=== PATIENT | female | born 1955 | race Caucasian/White ===

== ENCOUNTER → 2017-10-02 09:38 | Outpatient (CLI) | payer OTHER, SELFPAY ==
--- NOTE | 2017-10-02 | DI.MG.S_ITS ---
BILATERAL DIGITAL SCREENING MAMMOGRAM 3D/2D WITH CAD: 10/02/2017 CLINICAL: Routine screening. Family history of breast cancer. Comparison is made to exams dated: 09/12/2016 mammogram, 12/28/2015 mammogram, and 12/25/2014 mammogram - [facility]. There are scattered fibroglandular elements in both breasts. Current study was also evaluated with a Computer Aided Detection (CAD) system. No significant masses, calcifications, or other findings are seen in either breast. There has been no significant interval change. IMPRESSION: NEGATIVE There is no mammographic evidence of malignancy. A 1 year screening mammogram is recommended. This exam was interpreted at Station ID: [id number]. NOTE: For mammograms, a report in lay terms will be sent to the patient. Approximately 15% of breast malignancies will not be visualized mammographically. In the management of a palpable breast mass, a negative mammogram must not discourage biopsy of a clinically suspicious lesion. Electronically Signed By: Celine friedman/janet:10/02/2017 13:12:26 letter sent: Normal Exam ACR BI-RADS Category 1: Negative 3341F
== END ==
PROVIDERS: Family Provider Physician Assistant; PCP Physician Assistant; Visit Provider Physician Assistant
DX: Z12.31 Encounter for screening mammogram for malignant neoplasm of breast (principal); Z80.3 Family history of malignant neoplasm of breast
CPT/HCPCS: 77063; 77067

== ENCOUNTER 2017-12-20 11:12 | Day surgery (SDC) | payer OTHER, SELFPAY ==
--- NOTE | 2017-12-20 | PATH_ITS ---
[facility] Accession Number: [id number] . 01 Material submitted: . PART A: CECUM POLYP PART B: POLYP AT 30 . 02 Diagnosis: A. Biopsy, Cecum Polyp: Tubular adenoma involving single biopsy fragment. . B. Biopsy, Colon Polyp At 30 CM: Tubular adenoma involving single biopsy fragment. I/12/21/2017 . 02 Electronically signed: . Henry Barba MD, Pathologist NPI- [id number] . 01 Gross description: . Received two formalin-filled containers both labeled with the patient's name. . A. In a container labeled cecum polyp, the specimen consists of two 0.1 to 0.3 cm portions of tissue. Entirely submitted in cassette A. B. In a container labeled polyp at 30, the specimen consists of three 0.1 to 0.3 cm portions of tissue. Entirely submitted in cassette B. ([facility]:[id number]) /[facility] . 02 Pathologist provided ICD-10: D12.0 . 02 CPT . 662504, 876606 Performed at: 01 [facility] [address] [facility], [place], [place] [id number] MD Sanjay Sanders MD Phone: [phone] Performed at: 02 [facility] [address] [place], [place] [id number] MD Suleiman Brown MD Phone: [phone]
[2017-12-20 11:44] VITALS: BP 140/94; PULSE 81; RESP 16; TEMP 36.2; O2SAT 98; BMI 26.0
[2017-12-20] MEDS: SODIUM CHLORIDE 0.9% 1,000 ML 200 ML IV (11:45)
--- NOTE | 2017-12-20 12:59 | PM.PREOP ---
Pre-operative Note Interval Note Pre-op Check: Yes History & Physical Reviewed by Physician and Yes Exam Performed Changes: No H&P completed within 30 days and has changed as indicated here:: Risks and benefits discussed with her including bleeding perforation failure to find removal lesions in the potential tattoo
[2017-12-20 14:08] VITALS: BP 110/65; PULSE 75; RESP 18; TEMP 37.7
--- NOTE | 2017-12-20 14:08 | PM.OP.ENDO ---
Operative Date/Time/Diagnoses Date of procedure: 12/20/17 Time of procedure: 14:08 Pre-op diagnosis: Screening exam. Very anxious person who had great difficulty with her last colonoscopy. Request for anesthesiologist made. Post-op diagnosis: same (Two polyps removed 1 at the cecum and 1 at 30 cm from the anal verge. Scarring on old hemorrhoidal disease. No active ulcerations.) Procedure & Clinicians Study performed: Colonoscopy with cold biopsy Same procedure as scheduled: Yes Indications: Screening. Surgeon: Armando Bazan Procedure Notes SCOAP/Timeout: Performed Scope withdrawal time: Over 10 min Sedation minutes: 0 Findings: internal hemorrhoids and polyp (Cecum, a 30 cm from the anal verge. Each about 5-7 mm in size) Specimen(s): other (Polyps) Recommendations: Colonscopy in 5 years Follow up: as needed Disposition: PACU
[2017-12-20 14:15] VITALS: BP 111/76; PULSE 77; RESP 14
[2017-12-20 14:21] VITALS: BP 139/84; PULSE 74; RESP 16; TEMP 36.6
[2017-12-20 14:35] VITALS: BP 140/82; PULSE 72; RESP 16
== END 2017-12-20 14:46 | disposition home or self-care (01) ==
PROVIDERS: Family Provider Physician Assistant; PCP Physician Assistant; Visit Provider Specialist
PROC: 0DJD8ZZ Inspection of Lower Intestinal Tract, Via Natural or Artificial Opening Endoscopic (ICD-10-PCS; CPT 45378; principal; 2017-12-20 12:00)
DX: Z12.11 Encounter for screening for malignant neoplasm of colon (principal); K64.8 Other hemorrhoids; D12.0 Benign neoplasm of cecum
CPT/HCPCS: 45385; J1610; J2704; J3010

== ENCOUNTER → 2018-04-19 13:19 | Outpatient (CLI) | payer OTHER, SELFPAY ==
--- NOTE | 2018-04-19 | DI.RAD.S_ITS ---
PROCEDURE: XR SHOULDER LT MIN 2V INDICATIONS: SHOULDER PAIN TECHNIQUE: 3 views of the shoulder were acquired. COMPARISON: [facility], CR, XR SHOULDER RT MIN 2V, 04/19/2018, 13:27. FINDINGS: Bones: No fractures or dislocations. No suspicious bony lesions. Visualized ribs appear intact. Soft tissues: No suspicious soft tissue calcifications. IMPRESSION: No acute radiographic findings. If there is continued pain, followup exam or additional imaging such as MRI or CT could be performed for further assessment. Dictated by: Celine Morales M.D. on 04/19/2018 at 15:42 Approved by: Celine Morales M.D. on 04/19/2018 at 15:43
--- NOTE | 2018-04-19 | DI.RAD.S_ITS ---
PROCEDURE: XR SHOULDER RT MIN 2V INDICATIONS: SHOULDER PAIN TECHNIQUE: 3 views of the shoulder were acquired. COMPARISON: [facility], , SHOULDER MINIMUM 2VIEW RIGHT, 11/28/2012, 15:21. FINDINGS: Bones: No fractures or dislocations. No suspicious bony lesions. Visualized ribs appear intact. Soft tissues: No suspicious soft tissue calcifications. IMPRESSION: No acute radiographic findings. If there is continued pain, followup exam or additional imaging such as MRI or CT could be performed for further assessment. Dictated by: Celine Morales M.D. on 04/19/2018 at 15:43 Approved by: Celine Moarles M.D. on 04/19/2018 at 15:43
== END ==
PROVIDERS: Family Provider Physician Assistant; PCP Physician Assistant; Visit Provider Physician Assistant
DX: M25.511 Pain in right shoulder (principal); M25.512 Pain in left shoulder
CPT/HCPCS: 73030

== ENCOUNTER → 2018-10-15 12:29 | Outpatient (CLI) | payer OTHER, SELFPAY ==
--- NOTE | 2018-10-15 | DI.MG.S_ITS ---
BILATERAL DIGITAL SCREENING MAMMOGRAM 3D/2D WITH CAD: 10/15/2018 CLINICAL: Routine screening. Family history of breast cancer. Comparison is made to exams dated: 10/02/2017 mammogram, 09/12/2016 mammogram, 12/28/2015 mammogram, 12/25/2014 mammogram, and 12/17/2013 mammogram - [facility]. The tissue of both breasts is heterogeneously dense. This may lower the sensitivity of mammography. Current study was also evaluated with a Computer Aided Detection (CAD) system. No significant masses, calcifications, or other findings are seen in either breast. There has been no significant interval change. IMPRESSION: NEGATIVE There is no mammographic evidence of malignancy. A 1 year screening mammogram is recommended. This exam was interpreted at Station ID: [id number]. NOTE: For mammograms, a report in lay terms will be sent to the patient. Approximately 15% of breast malignancies will not be visualized mammographically. In the management of a palpable breast mass, a negative mammogram must not discourage biopsy of a clinically suspicious lesion. Electronically Signed By: Jostin wiggins/janet:10/15/2018 20:27:59 letter sent: Normal Exam ACR BI-RADS Category 1: Negative 3341F
== END ==
PROVIDERS: PCP Student in an Organized Health Care Education/Training Program; Visit Provider Student in an Organized Health Care Education/Training Program
DX: Z12.31 Encounter for screening mammogram for malignant neoplasm of breast (principal); Z80.3 Family history of malignant neoplasm of breast
CPT/HCPCS: 77063; 77067

== ENCOUNTER → 2018-11-09 11:36 | Outpatient (CLI) | payer OTHER, SELFPAY ==
[2018-11-09 13:10] LABS: Add Manual Diff / Slide Review NO; Basophils Absolute Auto 0 /uL (0-100); Basophils Percent Auto 0.3 % (0-2); Eosinophils Absolute Auto 0 /uL (0-450); Eosinophils Percent Auto 0.1 % (2-4); Hematocrit 42.8 % (36-46); Hemoglobin 14.4 g/dL (12.0-16.0); Lymphocytes Absolute Auto 1600 /uL (1100-4500); Lymphocytes Percent Auto 30.3 % (25-40); Mean Corpuscular HGB Conc 33.6 % (30-36); Mean Corpuscular Hemoglobin 29.6 PG (26-34); Monocytes Absolute Auto 300 /uL (0-900); Monocytes Percent Auto 5.6 % (3-14); Neutrophils Absolute Auto 3300 /uL (1500-7000); Neutrophils Percent Auto 63.7 % (50-75); Platelet Count 272 X10^3/uL (150-400); Red Blood Cell Count 4.87 X10^6/uL (4.0-5.2); White Blood Cell Count 5.1 X10^3/uL (4.5-11.0)
[2018-11-09 13:16] LABS: Alanine Aminotransferase 24 IU/L (9-52); Albumin 4.5 g/dL (3.5-5.0); Albumin Globulin Ratio 1.5 (1.0-2.8); Alkaline Phosphatase 92 U/L (38-126); Aspartate Aminotransferase 27 IU/L (14-36); BUN Creatinine Ratio 28.6 (6-22); Bilirubin Total 0.4 mg/dL (0.2-1.3); Blood Urea Nitrogen 20 mg/dL (7-17); Calcium 9.3 mg/dL (8.4-10.2); Carbon Dioxide 27 mmol/L (22-32); Chloride 104 mmol/L (98-107); Cholesterol 234 mg/dL (140-199); Estimated Glomerular Filt Rate > 60.0 mL/min (>60); Glucose 117 mg/dL (80-110); HDL Cholesterol 80 mg/dL (40-60); HEMOLYSIS < 15 (0-50); LDL Cholesterol Calculated 121 mg/dL (<100); Potassium 4.3 mmol/L (3.4-5.1); Sodium 140 mmol/L (137-145); Total Protein 7.5 g/dL (6.3-8.2); Triglycerides 164 mg/dL (35-150)
[2018-11-09 13:46] LABS: Thyroid Stimulating Hormone 1.25 uIU/mL (0.47-4.68)
== END ==
PROVIDERS: PCP Student in an Organized Health Care Education/Training Program; Visit Provider Student in an Organized Health Care Education/Training Program
DX: E03.9 Hypothyroidism, unspecified (principal); E78.2 Mixed hyperlipidemia
CPT/HCPCS: 36415; 80053; 80061; 84443; 85025

== ENCOUNTER → 2018-11-22 14:59 | Outpatient (CLI) | payer OTHER, SELFPAY | PROVIDERS: PCP Student in an Organized Health Care Education/Training Program; Visit Provider Student in an Organized Health Care Education/Training Program | DX: M85.851 Other specified disorders of bone density and structure, right thigh (principal) | CPT/HCPCS: 77080 ==

== ENCOUNTER → 2019-11-25 11:47 | Outpatient (CLI) | payer OTHER, SELFPAY ==
--- NOTE | 2019-11-25 | DI.MG.S_ITS ---
BILATERAL DIGITAL SCREENING MAMMOGRAM 3D/2D WITH CAD: 11/25/2019 CLINICAL: Routine screening. Family history of breast cancer. Comparison is made to exams dated: 10/15/2018 mammogram, 10/02/2017 mammogram, and 09/12/2016 mammogram - [facility]. The tissue of both breasts is heterogeneously dense. This may lower the sensitivity of mammography. Current study was also evaluated with a Computer Aided Detection (CAD) system. No significant masses, calcifications, or other findings are seen in either breast. There has been no significant interval change. IMPRESSION: NEGATIVE There is no mammographic evidence of malignancy. A 1 year screening mammogram is recommended. This exam was interpreted at Station ID: [id number]. NOTE: For mammograms, a report in lay terms will be sent to the patient. Approximately 15% of breast malignancies will not be visualized mammographically. In the management of a palpable breast mass, a negative mammogram must not discourage biopsy of a clinically suspicious lesion. Electronically Signed By: Tae mckee/janet:11/25/2019 16:42:48 letter sent: Normal Exam ACR BI-RADS Category 1: Negative 3341F
== END ==
PROVIDERS: PCP Student in an Organized Health Care Education/Training Program; Referring Provider Student in an Organized Health Care Education/Training Program; Visit Provider Student in an Organized Health Care Education/Training Program
DX: Z12.31 Encounter for screening mammogram for malignant neoplasm of breast (principal); Z80.3 Family history of malignant neoplasm of breast
CPT/HCPCS: 77063; 77067

== ENCOUNTER → 2020-03-02 17:34 | Outpatient (CLI) | payer OTHER, SELFPAY ==
[2020-03-02 18:56] LABS: Thyroid Stimulating Hormone 1.76 uIU/mL (0.47-4.68)
== END ==
PROVIDERS: PCP Student in an Organized Health Care Education/Training Program; Referring Provider Student in an Organized Health Care Education/Training Program; Visit Provider Student in an Organized Health Care Education/Training Program
DX: E03.9 Hypothyroidism, unspecified (principal)
CPT/HCPCS: 36415; 84443

== ENCOUNTER → 2020-05-31 19:42 | Outpatient (ROUT) | payer OTHER, SELFPAY ==
[2020-05-31 20:23] LABS: Blood Urea Nitrogen 12 mg/dL (7-17); Calcium 9.5 mg/dL (8.4-10.2); Carbon Dioxide 30 mmol/L (22-32); Chloride 100 mmol/L (98-107); Estimated Glomerular Filt Rate > 60.0 mL/min (>60); Glucose 170 mg/dL (80-110); HEMOLYSIS < 15 (0-50); Lipase 412 U/L (23-300); Potassium 3.9 mmol/L (3.4-5.1); Sodium 138 mmol/L (137-145)
== END ==
PROVIDERS: PCP Student in an Organized Health Care Education/Training Program; Visit Provider Student in an Organized Health Care Education/Training Program
DX: R19.7 Diarrhea, unspecified (principal)
CPT/HCPCS: 80048; 83690

== ENCOUNTER → 2020-06-16 13:17 | Outpatient (CLI) | payer OTHER, SELFPAY ==
--- NOTE | 2020-06-16 | DI.MRI.S_ITS ---
PROCEDURE: MR HEAD/BRAIN WO/W CON INDICATIONS: Headache, unspecified TECHNIQUE: Noncontrast axial T1 spin echo, axial T2 fast spin echo, sagittal and axial FLAIR, coronal T2 fast spin echo, axial gradient echo, axial diffusion and ADC through the brain. Thin-section precontrast T1 weighted images were obtained through the skull base. After the administration of contrast, axial and coronal T1 spin echo with fat saturation through the brain. Additional thin section coronal postcontrast T1 weighted fat saturated images were also acquired. COMPARISON: [facility], MR, BRAIN (PITUITARY) W&WO CONTRAS, 12/18/2012, 18:12. [facility], MR, BRAIN (PITUITARY) W&WO CONTRAS, 11/16/2010, 9:16. [facility], MR, BRAIN (PITUITARY) W&WO CONTRAS, 08/16/2015, 18:46. FINDINGS: Image quality: Excellent. CSF spaces: Basal cisterns are patent. No extra-axial fluid collections. Ventricles are normal in size and shape. Brain: No midline shift. No intracranial bleeds or masses. No abnormal intracranial enhancement. There is cerebral volume loss for age. There is periventricular white matter chronic small vessel ischemic change. The brainstem appears normal. Diffusion-weighted images demonstrate no acute ischemic insults. No chronic ischemic insults. Normal intravascular flow voids are present. A 9 mm hypoenhancing lesion is again seen involving the left pituitary, which is similar to the prior 2016 pituitary protocol MRI. Skull and face: Calvarial marrow is normal in signal. Orbits appear normal. Sinuses: Sinuses and mastoids appear clear. IMPRESSION: Unremarkable intracranial study, without an imaging explanation found for the patient's presenting history of headache. The known 9 mm left pituitary nodule is again seen. Dictated by: Cristóbal Multani M.D. on 06/16/2020 at 13:59 Approved by: Cristóbal Multani M.D. on 06/16/2020 at 14:04
== END ==
PROVIDERS: PCP Student in an Organized Health Care Education/Training Program; Referring Provider Student in an Organized Health Care Education/Training Program; Visit Provider Student in an Organized Health Care Education/Training Program
DX: R51.9 Headache, unspecified (principal); E23.7 Disorder of pituitary gland, unspecified
CPT/HCPCS: 70553; A9579

== ENCOUNTER → 2021-03-17 12:44 | Outpatient (CLI) | payer MEDICARE, SELFPAY | PROVIDERS: PCP Student in an Organized Health Care Education/Training Program; Referring Provider Student in an Organized Health Care Education/Training Program; Visit Provider Student in an Organized Health Care Education/Training Program | DX: M85.851 Other specified disorders of bone density and structure, right thigh (principal); Z78.0 Asymptomatic menopausal state | CPT/HCPCS: 77080 ==

== ENCOUNTER → 2021-03-29 07:46 | Outpatient (CLI) | payer MEDICARE, SELFPAY ==
--- NOTE | 2021-03-29 | DI.MG.S_ITS ---
BILATERAL DIGITAL SCREENING MAMMOGRAM 3D/2D WITH CAD: 03/29/2021 CLINICAL: Routine screening. Routine screening. Family history of breast cancer. Comparison is made to exams dated: 11/25/2019 mammogram, 10/15/2018 mammogram, and 10/02/2017 mammogram - [facility]. There are scattered fibroglandular elements in both breasts. Current study was also evaluated with a Computer Aided Detection (CAD) system. No significant masses, calcifications, or other findings are seen in either breast. There has been no significant interval change. IMPRESSION: NEGATIVE There is no mammographic evidence of malignancy. A 1 year screening mammogram is recommended. This exam was interpreted at Station ID: [id number]. NOTE: For mammograms, a report in lay terms will be sent to the patient. Approximately 15% of breast malignancies will not be visualized mammographically. In the management of a palpable breast mass, a negative mammogram must not discourage biopsy of a clinically suspicious lesion. Electronically Signed By: Tanisha valladares/janet:03/29/2021 11:19:07 letter sent: Normal Exam ACR BI-RADS Category 1: Negative 3341F
[2021-03-29 09:46] LABS: Cholesterol 233 mg/dL (140-199); HDL Cholesterol 67 mg/dL (40-60); LDL Cholesterol Calculated 129 mg/dL (<100); Triglycerides 185 mg/dL (35-150)
[2021-03-29 10:14] LABS: Thyroid Stimulating Hormone 3.43 uIU/mL (0.47-4.68)
[2021-03-30 19:06] LABS: HIV 1 & 2 Ab/Ag 4th Gen Combo NEGATIVE (NEGATIVE); Hep C Virus Ab w/Reflex Quant NEGATIVE s/c (NEGATIVE)
== END ==
PROVIDERS: PCP Student in an Organized Health Care Education/Training Program; Referring Provider Student in an Organized Health Care Education/Training Program; Visit Provider Student in an Organized Health Care Education/Training Program
DX: Z12.31 Encounter for screening mammogram for malignant neoplasm of breast (principal); Z80.3 Family history of malignant neoplasm of breast; Z13.220 Encounter for screening for lipoid disorders; E03.8 Other specified hypothyroidism; Z11.59 Encounter for screening for other viral diseases; Z11.4 Encounter for screening for human immunodeficiency virus [HIV]
CPT/HCPCS: 36415; 77063; 77067; 80061; 84443; 86803; 87389

== ENCOUNTER → 2022-02-13 09:00 | Outpatient (CLI) | payer MEDICARE, MEDICAID, SELFPAY ==
[2022-02-13 10:33] LABS: Add Manual Diff / Slide Review NO; Basophils Absolute Auto 0 /uL (0-100); Basophils Percent Auto 0.1 % (0-2); Eosinophils Absolute Auto 0 /uL (0-450); Eosinophils Percent Auto 0.1 % (2-4); Hematocrit 38.9 % (36-46); Hemoglobin 12.9 g/dL (12.0-16.0); Lymphocytes Absolute Auto 1400 /uL (1100-4500); Lymphocytes Percent Auto 31.7 % (25-40); Mean Corpuscular HGB Conc 33.2 % (30-36); Mean Corpuscular Hemoglobin 29.5 PG (26-34); Mean Corpuscular Volume 89.1 fL (80-100); Monocytes Absolute Auto 300 /uL (0-900); Monocytes Percent Auto 6.5 % (3-14); Neutrophils Absolute Auto 2800 /uL (1500-7000); Neutrophils Percent Auto 61.6 % (50-75); Platelet Count 198 X10^3/uL (150-400); Red Blood Cell Count 4.37 X10^6/uL (4.0-5.2); Red Cell Distribution Width 13.1 % (11.6-14.8); White Blood Cell Count 4.5 X10^3/uL (4.5-11.0)
[2022-02-13 11:00] LABS: Alanine Aminotransferase 33 IU/L (<35); Albumin 4.4 g/dL (3.5-5.0); Albumin Globulin Ratio 1.4 (1.0-2.8); Alkaline Phosphatase 91 U/L (38-126); Aspartate Aminotransferase 31 IU/L (14-36); BUN Creatinine Ratio 21.4 (6-22); Bilirubin Total 0.4 mg/dL (0.2-1.3); Blood Urea Nitrogen 21 mg/dL (7-17); Calcium 9.3 mg/dL (8.4-10.2); Carbon Dioxide 26 mmol/L (22-32); Chloride 106 mmol/L (98-107); Cholesterol 235 mg/dL (140-199); Estimated Glomerular Filt Rate > 60 mL/min (>60); Globulin 3.1 g/dL (1.7-4.1); Glucose 110 mg/dL (80-110); HDL Cholesterol 66 mg/dL (40-60); HEMOLYSIS < 15 (0-50); LDL Cholesterol Calculated 130 mg/dL (<100); Potassium 4.5 mmol/L (3.4-5.1); Sodium 140 mmol/L (137-145); Total Protein 7.5 g/dL (6.3-8.2); Triglycerides 197 mg/dL (35-150)
[2022-02-13 11:08] LABS: Rheumatoid Factor < 8.6 IU/mL (<12.0)
[2022-02-16 13:57] LABS: ANA Screen, IFA Negative (.)
[2022-02-17 07:59] LABS: Dil Russell Viper Venom Conf 2.5 ratio (0.8-1.2); Dilute Russell Viper Venom 109.2 sec (0.0-47.0); Dilute Russell Viper Venom Mix 85.5 sec (0.0-40.4); Hexagonal Phase Phospholipid 27 sec (0-11); Lupus Reflex Interpretation Comment: (.); PTT- LA Mix 61.5 sec (0.0-48.9); PTT-LA 66.2 sec (0.0-51.9)
[2022-03-01 12:11] LABS: Cardiolipin IgA Negative (.)
[2022-03-01 12:36] LABS: Recommendations Comment: (.)
== END ==
PROVIDERS: PCP Student in an Organized Health Care Education/Training Program; Referring Provider Internal Medicine; Visit Provider Internal Medicine
DX: R23.1 Pallor (principal)
CPT/HCPCS: 36415; 80053; 80061; 82595; 83520; 85025; 85598; 85613; 86038; 86147; 86148; 86430

== ENCOUNTER → 2022-03-29 15:50 | Outpatient (CLI) | payer MEDICARE, SELFPAY ==
--- NOTE | 2022-03-29 15:52 | DI.ECHO.S_ITS ---
[facility] +---------+ : : [address] : : : : [id number] : : : : Phone: [phone]+ Echocardiogram Report + + :Name: UNRULY CHAMBERS Study Date: 03/29/2022 Height: 63 in : :[facility] ReadingLocation: Weight: 174 lb : : Gender: Female BSA: 1.8 m2 : :: 1955 Age: 67 yrs BP: 106/75 mmHg: :Reason For Study: HYPERTENSION : :Ordering Physician: HODA, : :PRAVEEN Performed By: Amy Choi : :Referring: PRAVEEN DRUMMOND : + + Interpretation Summary The ejection fraction is estimated to be 65-70%. Grade I diastolic dysfunction. The right ventricle is normal in size and function. The IVC is of normal diameter and collapses greater than 50% with a sniff. This suggests a low right atrial pressure of 3 mm Hg. No significant valvular disease. Procedure: A two-dimensional transthoracic echocardiogram with color flow and Doppler was performed. The study quality was technically adequate. Comparison is made with the echocardiogram of 12/14/2016. The patient was in sinus rhythm with heart rates between 74-86 bpm during the exam. Left Ventricle: The left ventricular cavity is small. There is normal left ventricular wall thickness. Concentric remodeling. The ejection fraction is estimated to be 65-70%. There are no obvious focal wall motion abnormalities noted but poor endocardial definition reduces the sensitivity for the detection of such. Grade I diastolic dysfunction. Right Ventricle: The right ventricle is normal in size and function. Atria: The left atrial size is normal. Right atrial size is normal. There is no Doppler evidence for an interatrial shunt. Mitral Valve: The mitral valve is normal in structure and function. There is trace mitral regurgitation. Aortic Valve: The aortic valve is trileaflet. The aortic valve opens well. There is no aortic valve stenosis. No aortic regurgitation is present. Tricuspid Valve: The tricuspid valve is normal in structure and function. There is trace tricuspid regurgitation. Pulmonic Valve: The pulmonic valve leaflets are thin and pliable; valve motion is normal. There is trace pulmonic regurgitation. Great Vessels: The aortic root is normal size. The dimensions of the ascending aorta are normal. The IVC is of normal diameter and collapses greater than 50% with a sniff. This suggests a low right atrial pressure of 3 mm Hg. Pericardium/ Pleura There is no pericardial effusion. There is no pleural effusion. MMode/2D Measurements & Calculations LVIDd: 3.9 cm LVOT diam: 2.0 cm IVSd: 0.95 cm Ao root diam: 3.1 cm LVPWd: 0.92 cm asc Aorta Diam: 3.4 cm LV hines. diameter/BSA (cm/m^2): 2.1 Ao Arch Diam (Prox Trans): 2.6 cm LA A2 area: 17.5 cm2 RA long axis: 4.0 cm LA A4 area: 9.9 cm2 RA area: 11.1 cm2 LA length (vol): 4.2 cm RA vol: 26.4 ml LA vol: 35.2 ml RA : 14.5 ml/m2 LA vol index: 19.3 ml/m2 IVC diam: 0.86 cm RVD1 (basal): 3.2 cm RVD2 (mid): 2.7 cm TAPSE: 1.8 cm Doppler Measurements & Calculations Ao V2 max: 134.1 cm/sec LVOT Max Edenilson: 121.5 cm/sec Ao V2 mean: 97.8 cm/sec LV V1 max P.9 mmHg Ao max P.2 mmHg LV V1 VTI: 22.0 cm Ao mean P.1 mmHg TIGRE(I,D): 2.8 cm2 Ao V2 VTI: 24.6 cm TIGRE(V,D): 2.8 cm2 sev ratio: 0.90 TIGRE indexed to BSA (cm^2/m^2): 1.5 MV E max edenilson: 92.5 cm/sec PA V2 max: 111.6 cm/sec MV A max edenilson: 91.6 cm/sec PA V2 mean: 74.5 cm/sec MV E/A: 1.0 PA mean P.6 mmHg Med Peak E' Edenilson: 5.5 cm/sec PA pr(Accel): 53.3 mmHg E/E' med: 16.7 Lat Peak E' Edenilson: 7.7 cm/sec E/E' lat: 12.0 E/e' average: 14.3 MV dec time: 0.23 sec [facility]): 68.0 ml Reading Physician:ТАТЬЯНА
== END ==
PROVIDERS: PCP Nurse Practitioner; Referring Provider Nurse Practitioner; Visit Provider Nurse Practitioner
DX: I10 Essential (primary) hypertension (principal)
CPT/HCPCS: 93005; 93306

== ENCOUNTER → 2022-04-18 15:11 | Outpatient (CLI) | payer MEDICARE, SELFPAY ==
--- NOTE | 2022-04-18 15:12 | DI.MG.S_ITS ---
BILATERAL DIGITAL SCREENING MAMMOGRAM 3D/2D WITH CAD: 04/18/2022 CLINICAL: Routine screening. Family history of breast cancer. Comparison is made to exams dated: 03/29/2021 mammogram, 11/25/2019 mammogram, and 10/15/2018 mammogram - [facility]. There are scattered areas of fibroglandular density in both breasts (category b / 25%-50% glandular tissue). Current study was also evaluated with a Computer Aided Detection (CAD) system. There are benign calcifications in both breasts. No significant masses, calcifications, or other findings are seen in either breast. There has been no significant interval change. IMPRESSION: BENIGN There is no mammographic evidence of malignancy. A 1 year screening mammogram is recommended. Based on the Tyrer Cuzick model (a risk assessment model) the patient's lifetime risk is 7.0% and her 10 year risk is 3.5%. According to the ACR, ACS, and NCCN guidelines, an annual breast MRI exam along with mammogram is recommended if the patient's lifetime risk is 20% or greater. This exam was interpreted at Station ID: [id number]. NOTE: For mammograms, a report in lay terms will be sent to the patient. Approximately 15% of breast malignancies will not be visualized mammographically. In the management of a palpable breast mass, a negative mammogram must not discourage biopsy of a clinically suspicious lesion. Electronically Signed By: Josias mcduffie/janet:04/19/2022 12:55:28 letter sent: Normal Exam ACR BI-RADS Category 2: Benign Finding(s) 3342F
[2022-04-25 17:11] LABS: Fecal Immunochemical Test Negative (Negative)
== END ==
PROVIDERS: PCP Nurse Practitioner; Referring Provider Nurse Practitioner; Visit Provider Nurse Practitioner
DX: Z12.31 Encounter for screening mammogram for malignant neoplasm of breast (principal); Z80.3 Family history of malignant neoplasm of breast; Z12.11 Encounter for screening for malignant neoplasm of colon
CPT/HCPCS: 77063; 77067; 82274

== ENCOUNTER → 2022-08-18 09:55 | Outpatient (CLI) | payer MEDICARE, MEDICAID, SELFPAY ==
[2022-08-18 10:40] LABS: Add Manual Diff / Slide Review NO; Basophils Absolute Auto 0 /uL (0-100); Basophils Percent Auto 0.1 % (0-2); Eosinophils Absolute Auto 0 /uL (0-450); Eosinophils Percent Auto 0.1 % (2-4); Hematocrit 38.5 % (36-46); Lymphocytes Absolute Auto 1400 /uL (1100-4500); Lymphocytes Percent Auto 27.4 % (25-40); Mean Corpuscular HGB Conc 33.7 % (30-36); Mean Corpuscular Volume 89.1 fL (80-100); Monocytes Absolute Auto 300 /uL (0-900); Monocytes Percent Auto 5.4 % (3-14); Neutrophils Absolute Auto 3300 /uL (1500-7000); Platelet Count 223 X10^3/uL (150-400); Red Blood Cell Count 4.32 X10^6/uL (4.0-5.2); Red Cell Distribution Width 13.4 % (11.6-14.8)
[2022-08-18 11:07] LABS: Alanine Aminotransferase 36 IU/L (<35); Albumin 4.1 g/dL (3.5-5.0); Albumin Globulin Ratio 1.5 (1.0-2.8); Alkaline Phosphatase 95 U/L (38-126); Aspartate Aminotransferase 28 IU/L (14-36); Bilirubin Total 0.3 mg/dL (0.2-1.3); Blood Urea Nitrogen 24 mg/dL (7-17); Calcium 9.3 mg/dL (8.4-10.2); Carbon Dioxide 27 mmol/L (22-32); Chloride 107 mmol/L (98-107); Estimated Glomerular Filt Rate > 60 mL/min (>60); Globulin 2.8 g/dL (1.7-4.1); Glucose 103 mg/dL (80-110); HEMOLYSIS < 15 (0-50); Potassium 4.4 mmol/L (3.4-5.1); Sodium 140 mmol/L (137-145); Total Protein 6.9 g/dL (6.3-8.2)
[2022-08-18 11:09] LABS: Cholesterol 217 mg/dL (140-199); HDL Cholesterol 71 mg/dL (40-60); LDL Cholesterol Calculated 114 mg/dL (<100); Triglycerides 158 mg/dL (35-150)
[2022-08-19 06:08] LABS: Labcorp Hemoglobin (Hb) A1c 5.6 % (4.8-5.6)
== END ==
PROVIDERS: Internal Medicine Hematology & Oncology; PCP Nurse Practitioner; Referring Provider Nurse Practitioner; Visit Provider Nurse Practitioner
DX: E78.2 Mixed hyperlipidemia; Z87.898 Personal history of other specified conditions; D68.61 Antiphospholipid syndrome; R73.01 Impaired fasting glucose
CPT/HCPCS: 36415; 80053; 80061; 83036; 85025

== ENCOUNTER → 2022-10-10 17:09 | Outpatient (CLI) | payer MEDICARE, MEDICAID, SELFPAY | PROVIDERS: PCP Nurse Practitioner; Visit Provider Nurse Practitioner | DX: N89.8 Other specified noninflammatory disorders of vagina (principal) | CPT/HCPCS: 87070; 87205 ==

== ENCOUNTER 2022-11-28 12:29 | Day surgery (SDC) | payer MEDICARE, MEDICAID, SELFPAY ==
--- NOTE | 2022-11-28 | PATH_ITS ---
[facility] Accession Number: [id number] No. of containers..03 Tissue . 01 Material submitted: . PART A: colon - TRANSVERSE POLYP PART B: rectum - RECTAL BIOPSY PART C: rectum - RECTAL POLYP . 01 Diagnosis: A. Transverse Colon Polyp, Biopsy: Tubular adenoma. . B. Rectum, Biopsy: Colonic mucosa with no diagnostic abnormality. Negative for active, chronic, and microscopic colitis. Negative for dysplasia and malignancy. . C. Rectal Polyp, Biopsy: Hyperplastic polyp. [facility] 12/05/2022 1100 Local . 01 Electronically signed: . Eryn Pratt MD, Pathologist NPI- [id number] . 01 Gross description: . A. Received in formalin, labeled with the patient's name and transverse polyp, are two 0.3 cm biopsies, submitted entirely in cassette A1. B. Received in formalin, labeled with the patient's name and rectal biopsy, are two 0.2-0.3 cm biopsies, submitted entirely in cassette B1. C. Received in formalin, labeled with the patient's name and rectal polyp, is a 0.4 cm biopsy, submitted entirely in cassette C1. (SF:[id number]) /[facility] 12/02/2022 1602 Local . 01 Pathologist provided ICD-10: D12.3, D12.8 . 01 CPT . 498956, 996022, 126504 Specimen Comment: A courtesy copy of this report has been sent to [phone] Performed at: 01 [facility] [address] [place] [address], [place], [place] [id number] MD Sanjay Sanders MD Phone: [phone]
[2022-11-28] MEDS: FLEETS ENEMA 1 EACH PR (12:54)
[2022-11-28 13:13] VITALS: BMI 65.6
[2022-11-28 13:20] VITALS: BP 137/84; PULSE 92; RESP 17; TEMP 36.8; O2SAT 100
[2022-11-28] MEDS: LACTATED RINGERS 1,000 ML 42 ML IV (13:25)
--- NOTE | 2022-11-28 14:37 | P.HP_ITS ---
History of Present Illness History of Present Illness Date Patient Seen: 11/28/22 Chief complaint: Colonoscopy Narrative: 67-year-old woman here for diagnostic colonoscopy for altered bowel function. Please refer to the H and P from October for further detail. No interval change in health [facility] Medical History Acne Anemia Antiphospholipid antibody syndrome Anxiety Chicken pox Colon polyps Depression Diverticular disease Eczema Gastric ulcer GERD (gastroesophageal reflux disease) H/O: depression Hearing loss Hearing Loss History of recurrent ear infection History of urinary incontinence Human papilloma virus Hyperlipidemia Hypertension Hypothyroidism Irregular menstrual cycle Irritable bowel syndrome Lupus Measles Mixed hyperlipidemia Mumps Painful menstrual periods Pituitary adenoma Plantar warts Post menopausal problems Psoriasis Scar of middle ear Sebaceous cyst Seizures Temporal lobe epilepsy Uses hearing aid Surgical History Anesthesia History of tonsillectomy and adenoidectomy Plantar warts Venus teeth removed Family History Father Hypertension Stroke Cancer Brother Hypertension Stroke Diabetes mellitus Cancer History of heart disease Mental health problem Mother Dementia Grandfather Cancer Grandmother Cancer Grandfather Cancer Social History (Updated 10/19/22 @ 11:00 by Lena Romero MA) marital status: household members: spouse lives independently: Yes occupational status: previously employed Smoking Status: Never smoker alcohol intake: current substance use type: does not use Meds Home Medications and Allergies Home Medications Medication Instructions Recorded Confirmed Type levothyroxine 112 mcg capsule 112 mcg PO DAILY 12/20/17 11/28/22 History ascorbic acid (vitamin C) 500 mg 500 mg PO .QD 03/13/22 11/28/22 History capsule cholecalciferol (vitamin D3) 50 50 mcg PO DAILY 03/13/22 11/28/22 History mcg (2,000 unit) capsule famotidine 20 mg tablet See Rx Instructions PO .COMPLEX 03/13/22 11/28/22 History levetiracetam 250 mg tablet 250 mg PO BID 03/13/22 11/28/22 History lisinopril 10 mg tablet 10 mg PO DAILY 03/13/22 11/28/22 History olanzapine 5 mg tablet 2.5 mg PO BEDTIME #45 tabs 03/13/22 11/28/22 Rx topiramate 100 mg tablet See Rx Instructions PO .COMPLEX 03/13/22 11/28/22 History atorvastatin 40 mg tablet 40 mg PO BEDTIME #90 tabs 04/03/22 11/28/22 Rx ezetimibe 10 mg tablet 10 mg PO .HS #90 tabs 04/03/22 11/28/22 Rx aspirin 81 mg tablet,delayed 81 mg PO DAILY aps #90 tabs 05/25/22 11/28/22 Rx release venlafaxine 150 mg 150 mg PO BEDTIME #90 caps 06/12/22 11/28/22 Rx capsule,extended release 24 hr sodium,potassium,mag sulfates 17.5 See Rx Instructions PO .COMPLEX 11/10/22 Rx gram-3.13 gram-1.6 gram oral soln #354 mL (Suprep Bowel Prep Kit) Allergies Allergy/AdvReac Type Severity Reaction Status Date / Time amoxicillin [AMOXICILLIN] Allergy Unknown Rash Verified 10/19/22 10:58 Penicillins Allergy Rash Verified 10/19/22 10:58 Sulfa (Sulfonamide Allergy Rash Verified 11/28/22 13:11 Antibiotics) adhesive tape AdvReac Unknown Redness of Verified 11/28/22 13:11 Skin Exam Vital Signs (past 8 hours): - 11/28/22 13:20 Temperature 98.2 F Pulse Rate 92 H Respiratory Rate 17 Blood Pressure 137/84 Pulse Oximetry 100 Oxygen Delivery Method Room Air Oxygen Delivery Method Room Air Narrative Exam Narrative: General adult woman alert oriented no acute distress Abdomen soft nontender nondistended Assessment & Plan Assessment and plan (1) Altered bowel function: Status: Acute Assessment & Plan narrative: 67year old woman with altered bowel function here for diagnostic colonoscopy Technical details were discussed. Risks, benefits, alternatives explained. Risks including but not limited to myocardial infarction, aspiration, bleeding, pain, missed lesion, incomplete examination, need for further radiographic studies, colonic perforation, and need for major abdominal surgery were discussed. All questions were answered to their satisfaction, and they are in agreement with this plan.
--- NOTE | 2022-11-28 14:38 | PM.OP.COLON ---
Operative Date/Time/Diagnoses Date of procedure: 11/28/22 Time of procedure: 14:39 Pre-op diagnosis: Altered bowel function Post-op diagnosis: other (Colonic polyps x2) Procedure & Clinicians Study performed: Diagnostic colonoscopy Same procedure as scheduled: Yes Indications: Altered bowel function Surgeon: Jefferson Kirk Procedure Notes Procedure in detail: The history and physical was performed/updated and the patient is ASA class is 2. The procedure was discussed in detail with the patient. Potential risks complications including infection, bleeding, missed diagnosis, perforation, need for surgery, and were explained. Their questions were answered and informed consent was obtained. Patient was brought to the procedure room and placed standard monitoring equipment. The patient's vital signs were monitored continuously throughout the entire procedure. Prior to starting time-out was performed. The patient was placed in the left lateral recumbent position. Procedural sedation was administered by anesthesia. Examination began with a thorough inspection of the perianal area there was no evidence of fissures, fistulae, external hemorrhoids or cutaneous malignancy. The colonoscopy scope was then placed into the anal canal and was advanced to the cecum, which was identified by the ileocecal valve, the appendiceal orifice and the confluence of the taenia. The scope was then slowly withdrawn examining colon thoroughly in all directions, irrigating it of any residual stool. -transverse colon 5 mm polyp removed with biopsy forceps -rectum 3 mm polyp removed with biopsy forceps. A random colonic biopsy was performed to The patient tolerated the procedure well. They will be discharged once criteria are met. The prep was of good/excellent quality. The withdrawl time was 8 minutes. Specimen(s): other (Transverse and rectal polyps. Colonic biopsy) Impression: Colonic polyps x2 Post-procedure Plan for aftercare: Follow-up dependent on pathology findings. Likely 5 years. Disposition: same day surgery
[2022-11-28 15:27] VITALS: BP 95/64; PULSE 74; RESP 14; TEMP 36.4; O2SAT 95
[2022-11-28 15:32] VITALS: BP 94/62; PULSE 82; RESP 16; O2SAT 98
[2022-11-28 15:37] VITALS: BP 121/74; PULSE 77; RESP 16; TEMP 36.3; O2SAT 99
[2022-11-28 15:41] VITALS: BP 134/76; PULSE 69; RESP 16; O2SAT 99
== END 2022-11-28 16:04 | disposition home or self-care (01) ==
PROVIDERS: PCP Nurse Practitioner; Referring Provider Surgery; Visit Provider Surgery
PROC: 0DJD8ZZ Inspection of Lower Intestinal Tract, Via Natural or Artificial Opening Endoscopic (ICD-10-PCS; CPT 45378; principal; 2022-11-28 13:30)
DX: R19.8 Other specified symptoms and signs involving the digestive system and abdomen (principal); D12.3 Benign neoplasm of transverse colon; K62.1 Rectal polyp
CPT/HCPCS: 45380; J2704

== ENCOUNTER → 2023-04-19 | Outpatient (CLI) | payer MEDICARE, MEDICAID, SELFPAY ==
--- NOTE | 2023-04-19 12:37 | DI.RAD.S_ITS ---
Bone Density Report Name: UNRULY CHAMBERS Age: 68 Sex: Female Ethnicity: White Date of : 1955 Indication: osteopenia; Referring Provider: PRAVEEN DRUMMOND Study: Bone densitometry was performed. Exam Date: April 19, 2023 Accession number: [id number] Bone Density: Region BMD T-score Z-score Classification AP Spine(L1, L4) 0.981 -0.5 1.4 Normal Femoral Neck (Left) 0.631 -2.0 -0.3 Osteopenia Total Hip (Left) 0.818 -1.0 0.3 Normal Femoral Neck (Right) 0.576 -2.5 -0.8 Osteoporosis Total Hip (Right) 0.772 -1.4 0.0 Osteopenia Total Hip Mean 0.795 -1.2 0.2 Osteopenia World Health Organization criteria for BMD impression classify patients as: Normal (T-score at or above -1.0), Osteopenia (T-score between -1.0 and -2.5), or Osteoporosis (T-score at or below -2.5). 10-year Fracture Risk: FRAX not reported because: Some T-score for Spine Total or Hip Total or Femoral Neck at or below -2.5 Previous Exams: -- Region Exam Age BMD T-score BMD Change BMD Change Date g/cm2 vs Baseline vs Previous -- AP Spine (L1,L4) 04/19/2023 68 0.981 -0.5 -0.079 (-7.5%)# -0.085 (-8.0%)# 03/17/2021 66 1.065 0.3 0.006 (0.5%) 0.006 (0.5%) 11/22/2018 63 1.060 0.2 Total Hip(Left) 04/19/2023 68 0.818 -1.0 -0.012 (-1.4%)# -0.002 (-0.3%)# 03/17/2021 66 0.820 -1.0 -0.010 (-1.2%) -0.010 (-1.2%) 11/22/2018 63 0.829 -0.9 Total Hip(Right) 04/19/2023 68 0.772 -1.4 -0.049 (-6.0%)# -0.030 (-3.8%)# 03/17/2021 66 0.803 -1.1 -0.019 (-2.3%) -0.019 (-2.3%) 11/22/2018 63 0.821 -1.0 -- *Denotes significance at 95% confidence level, LSC for AP Spine = 0.022 g/cm2, LSC for Total Hip = 0.027 g/cm2 Rate of change results reflect vertebral levels common to all scans # Denotes dissimilar scan types or analysis methods Impression: The patient has osteoporosis, based on the Right Femoral Neck T-score. No significant bone loss was observed. Discussion: INCREASED RISK OF FRACTURE. BONE DENSITY IS UNDESIRABLY LOW AT ONE OR MORE SKELETAL SITES, CONSISTENT WITH POSTMENOPAUSAL OSTEOPOROSIS. This patient's lowest T-score meets the World Health Organization's (WHO) criteria for osteoporosis at one or more sites (T-score -2.5 or below). In untreated patients, the risk of osteoporotic fracture increases approximately two-fold for each 1.0 SD decrease in T-score. Low bone density is not the only risk factor for fracture; also consider factors such as patient's age, frailty or poor health, risk of falling, risk of injury, previous osteoporotic fracture, family history of osteoporosis, cigarette smoking, low body weight, etc. Not everyone with low bone mineral density has osteoporosis; osteomalacia and other metabolic bone disorders should also be considered. Patients who have osteoporosis should be evaluated for specific diseases and conditions (secondary causes) that may cause or contribute to bone loss. The [place] [employer] Endocrinologists (AACE) and National Osteoporosis Foundation (NOF) recommend pharmacologic intervention for all postmenopausal women whose T-score is in this range. The patient should follow a healthful lifestyle (good nutrition with adequate calcium and vitamin D, and appropriate weight-bearing exercise). Follow-Up: Consider a repeat BMD and Vertebral Fracture Assessment (VFA) exam in 2 years or sooner if medically necessary, to reassess this patient's status. Reported by: MITRA BURRIS M.D. on 04/19/2023 10:43:00 AM.
--- NOTE | 2023-04-19 12:37 | DI.MG.S_ITS ---
BILATERAL DIGITAL SCREENING MAMMOGRAM 3D/2D WITH CAD: 04/19/2023 CLINICAL: Routine screening. Family history of breast cancer. Comparison is made to exams dated: 04/18/2022 mammogram, 03/29/2021 mammogram, and 11/25/2019 mammogram - [facility]. There are scattered areas of fibroglandular density in both breasts (category b / 25%-50% glandular tissue). Current study was also evaluated with a Computer Aided Detection (CAD) system. There are benign calcifications in both breasts. No significant masses, calcifications, or other findings are seen in either breast. There has been no significant interval change. IMPRESSION: BENIGN There is no mammographic evidence of malignancy. A 1 year screening mammogram is recommended. Based on the Tyrer Cuzick model (a risk assessment model) the patient's lifetime risk is 6.7% and her 10 year risk is 3.5%. According to the ACR, ACS, and NCCN guidelines, an annual breast MRI exam along with mammogram is recommended if the patient's lifetime risk is 20% or greater. This exam was interpreted at Station ID: [id number]. NOTE: For mammograms, a report in lay terms will be sent to the patient. Approximately 15% of breast malignancies will not be visualized mammographically. In the management of a palpable breast mass, a negative mammogram must not discourage biopsy of a clinically suspicious lesion. Electronically Signed By: Jay [email or web address]:04/19/2023 13:48:10 letter sent: Normal Exam ACR BI-RADS Category 2: Benign Finding(s) 3342F
== END ==
PROVIDERS: PCP Nurse Practitioner; Referring Provider Nurse Practitioner; Visit Provider Nurse Practitioner
DX: Z12.31 Encounter for screening mammogram for malignant neoplasm of breast (principal); M81.0 Age-related osteoporosis without current pathological fracture; Z80.3 Family history of malignant neoplasm of breast
CPT/HCPCS: 77063; 77067; 77080

== ENCOUNTER → 2023-06-06 12:36 | Outpatient (CLI) | payer MEDICARE, MEDICAID, SELFPAY ==
[2023-06-06 13:00] LABS: Appearance Urine UA CLEAR; Bilirubin Urine UA NEGATIVE (NEGATIVE); Color Urine UA YELLOW; Glucose Urine UA NEGATIVE (Negative); Ketones Urine UA NEGATIVE (NEGATIVE); Leukocyte Esterase Urine UA TRACE (NEGATIVE); Nitrite Urine UA NEGATIVE (Negative); Occult Blood Urine UA NEGATIVE (Negative); Protein Urine UA NEGATIVE (Negative); Urobilinogen Urine UA 0.2 E.U./dL (0.2)
[2023-06-06 13:07] LABS: Bacteria Urine Occasional (0-1); Culture Indicated Urine Specimen Cultured; RBC Urine None Seen (0-5/HPF); Squamous Epithelial Cell Urine 0-1 /HPF (0-5/HPF); Urine Volume 10mL (spun); WBC Urine 0-1/HPF (0-5/HPF)
== END ==
LOC: LAB 12:37
PROVIDERS: PCP Nurse Practitioner; Referring Provider Nurse Practitioner; Visit Provider Nurse Practitioner
DX: R32 Unspecified urinary incontinence (principal)
CPT/HCPCS: 81001; 87086

== ENCOUNTER → 2023-07-03 12:22 | Outpatient (CLI) | payer MEDICARE, MEDICAID, SELFPAY ==
[2023-07-03 14:25] LABS: Thyroid Stimulating Hormone 1.32 uIU/mL (0.47-4.68)
== END ==
PROVIDERS: PCP Nurse Practitioner; Referring Provider Nurse Practitioner; Visit Provider Nurse Practitioner
DX: E03.9 Hypothyroidism, unspecified (principal)
CPT/HCPCS: 36415; 84443

== ENCOUNTER → 2023-07-19 15:19 | Outpatient (CLI) | payer MEDICARE, MEDICAID, SELFPAY | PROVIDERS: PCP Family Medicine; Visit Provider Family Medicine | DX: N39.0 Urinary tract infection, site not specified (principal); N89.8 Other specified noninflammatory disorders of vagina | CPT/HCPCS: 87086 ==

== ENCOUNTER → 2023-08-02 14:29 | Outpatient (CLI) | payer MEDICARE, MEDICAID, SELFPAY ==
--- NOTE | 2023-08-02 14:31 | DI.RAD.S_ITS ---
PROCEDURE: XR SHOULDER LT MIN 2V INDICATIONS: L shoulder pain TECHNIQUE: 3 views of the shoulder were acquired. COMPARISON: [facility], CR, XR SHOULDER LT MIN 2V, 04/19/2018, 13:28. [facility], CR, XR SHOULDER RT MIN 2V, 04/19/2018, 13:27. FINDINGS: Bones: No fractures or dislocations. No suspicious bony lesions. Visualized ribs appear intact. Soft tissues: No suspicious soft tissue calcifications. IMPRESSION: No acute osseous abnormality. If pain persists with conservative management, consider repeat x-ray in 10-14 days or cross-sectional imaging. Dictated by: Sesar Edgar M.D. on 08/02/2023 at 16:28 Approved by: Sesar Edgar M.D. on 08/02/2023 at 16:29
== END ==
PROVIDERS: PCP Family Medicine; Referring Provider Family Medicine; Visit Provider Family Medicine
DX: M25.512 Pain in left shoulder (principal)
CPT/HCPCS: 73030

== ENCOUNTER → 2023-08-08 11:20 | Outpatient (CLI) | payer MEDICARE, MEDICAID, SELFPAY ==
--- NOTE | 2023-08-08 11:21 | DI.US.S_ITS ---
PROCEDURE: US RENAL COMPLETE INDICATIONS: RETENTION OF URINE. DYSURIA. TECHNIQUE: Real-time scanning was performed of the kidneys and bladder, with image documentation. COMPARISON: None. FINDINGS: Kidneys: Kidneys are normal in size. Right kidney measures 10.2 cm long; left kidney measures 10.6 cm long. Right renal cortical thickness is 1.0 cm; left renal cortical thickness is 1.1 cm. Renal cortical echotexture is normal. No hydronephrosis or nephrolithiasis. No suspicious solid mass lesions. No complex renal cystic lesions which require follow-up. Scattered echogenic foci throughout the renal pyramids, probably representing vascular calcification. Bladder: Pre-void bladder volume is 255 mL. Post-void residual is 17 mL. Pre-void images demonstrate no intraluminal masses or stones. On pre-void images, both ureteral jets are noted with color Doppler interrogation. (Of note, ureteral jets may not be detectable in up to 25% of cases due to insufficient differences in specific gravity between ureteral and bladder urine). Miscellaneous: No free pelvic fluid. IMPRESSION: Postvoid residual of 17 mL, within normal limits. Scattered, punctate, echogenic foci throughout the renal pyramids, probably representing vascular calcification. Nephrolithiasis is also a consideration. Dictated by: Wong Sargent M.D. on 08/09/2023 at 9:12 Approved by: Wong Sargent M.D. on 08/09/2023 at 9:14
== END ==
LOC: US 11:20
PROVIDERS: Family Provider Family Medicine; PCP Family Medicine; Referring Provider Family Medicine; Visit Provider Family Medicine
DX: R33.9 Retention of urine, unspecified (principal)
CPT/HCPCS: 76770

== ENCOUNTER 2023-10-18 11:15 | Outpatient (RCR) | payer MEDICARE, MEDICAID, SELFPAY ==
--- NOTE | 2023-10-09 19:41 | PT.OIE ---
Current Diagnoses Unspecified urinary incontinence (10/09/23) Past Medical History (Last Reviewed 06/06/23 @ 17:45 by ARLENE Rock) Acne Age related osteoporosis Anemia Antiphospholipid antibody syndrome Anxiety Chicken pox Colon polyps Depression Diverticular disease Eczema Gastric ulcer GERD (gastroesophageal reflux disease) H/O: depression Hearing loss Hearing Loss History of recurrent ear infection History of urinary incontinence Human papilloma virus Hyperlipidemia Hypertension Hypothyroidism Irregular menstrual cycle Irritable bowel syndrome Lupus Measles Mixed hyperlipidemia Mumps Painful menstrual periods Pituitary adenoma Plantar warts Post menopausal problems Psoriasis Scar of middle ear Sebaceous cyst Seizures Temporal lobe epilepsy Uses hearing aid Past Surgical History (Last Reviewed 06/06/23 @ 17:45 by ARLENE Rock) Anesthesia History of tonsillectomy and adenoidectomy Plantar warts [place] teeth removed Visit Care Team Role Provider Type Holly Henriquez DO Attending Provider Physician Family Provider Primary Care Provider Referring Provider Specialty: Family Practice Address: [address] [place] [address], [facility] Email: [email or web address] Physical Therapy Initial Evaluation PT-OP-A Visit Information Start: 09/25/23 17:58 Freq: Status: Active Protocol: Document 10/09/23 10:32 LRN (Rec: 10/09/23 11:21 ROSIN [id number]) Out-Patient Physical Therapy Visit Information Visit Information Visit Type Initial Evaluation Visit Start Time 10:33 Visit Stop Time 11:20 Visit Number 1 Evaluation Information Evaluation Date 10/09/23 Precautions Precautions *LATEX ALLERGY, previously removed plantar warts, 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 PT-OP-B Current Condition Start: 09/25/23 17:58 Freq: Status: Active Protocol: Document 10/09/23 10:32 LRN (Rec: 10/09/23 11:21 ROSIN [id number]) Current Condition History of Current Condition Onset Date 2 yrs ago Current Complaints Random, total incontinence of urine History of Current Condition Pt states she has random uncontrollable loss of urine several times a month, towards the end of the night, standing to change clothes and has totally loss of bladder control, totally soaking her carpets (2-3 episodes/month). She states it is not so severe that she wears pads. 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 Pt reports she is concerned that her condition may be hereditary her mother had permanent cathertization after having children. Prior Treatments and Tests Bladder test (couple of months ago) described as urodynamic testing. Found cholesterol deposits in bladder. Developmental History Developmental History No pregnancies or births. x 2. Treatment Goals Patient/Caregiver Goals Pt goals: Strengthen the PF muscles and reduce the occurances of loss of control to 0-1 episode/month or reduce amount of volume of leakage, so not totally wetting the carpet, HEP. 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 PT-OP-C Subjective Start: 09/25/23 17:58 Freq: Status: Active Protocol: Document 10/09/23 10:32 LRN (Rec: 10/09/23 11:21 LRN [id number]) Patient Questionnaires Pelvic Pain and Urgency/Frequency Patient Symptom Scale Pelvic Pain Score 7 OP-PT Pain Assessment Pain Assessment Grid Paper Pain Assessment Grid Completed Yes Location L shoulder Pain Location Details Around L shoulder joint and upper arm. Intensity 4 Scale Used Numeric (0 - 10) PT-OP-I Pelvic Floor Start: 09/25/23 17:58 Freq: Status: Active Protocol: Document 10/09/23 10:32 LRN (Rec: 10/09/23 11:21 LRN [id number]) Pelvic Floor Assessment Urine Urinary Symptoms Hesitancy Other Urinary Symptoms Hesitancy after initial voiding and sometimes at start of urination. Heaviness and pressure before urinating sometimes. Voiding Frequency 10-12 per day Nocturia 1-2 Bowel Other Bowel Symptoms Takes stool softner daily, sometimes has diahrrea. Pelvic Clock Pelvic Clock 12-3 Tenderness,Tightness Pelvic Clock 3-6 Tenderness,Tightness Pelvic Clock 6-9 Tenderness,Tightness Pelvic Clock 9-12 Tenderness,Tightness Perineal Descent Resting Absent Bearing Absent Contraction Ability Voluntary Contraction Moderate Voluntary Relaxation Absent Manual Muscle Testing Left 3 Manual Muscle Testing Right 3 Manual Muscle Testing Anterior 3 Manual Muscle Testing Posterior 3 Muscle Endurance (Seconds) 8 Number of Quick Contractions In 10 2 Seconds Comments Pelvic Floor Comments Pt has very dry external PF tissues and a very small vaginal opening. PT-OP-J Posture/Palpation/Skin Start: 09/25/23 17:58 Freq: Status: Active Protocol: Document 10/09/23 10:32 LRN (Rec: 10/09/23 11:21 LRN [id number]) Posture Evaluation Position Standing Head/C-Spine Posture Side Bent Left T-Spine Posture Flattened L-Spine Posture Increased Lordosis Shoulder Posture (R) Elevated Pelvis Posture Anteriorly Tilted Weight Distribution Balanced PT-OP-K Range of Motion Start: 09/25/23 17:58 Freq: Status: Active Protocol: Document 10/09/23 10:32 LRN (Rec: 10/09/23 11:21 LRN [id number]) Lumbar Spine Range of Motion Lumbar Spine Active Degrees Testing Position Standing Flexion 67 Extension 10 Rotation Left 10 Rotation Right 10 Lateral Flexion Left 12 Lateral Flexion Right 12 Comments Rotation is approximation. Hip Goniometric Range of Motion Hip Right Passive Testing Position Supine Internal Rotation 10 External Rotation 75 Left Passive Testing Position Supine Internal Rotation 10 External Rotation 70 PT-OP-M Strength Start: 09/25/23 17:58 Freq: Status: Active Protocol: Document 10/09/23 10:32 LRN (Rec: 10/09/23 11:21 LRN [id number]) Trunk Strength Trunk Manual Muscle Testing Core Stabilization Not able to maintain core stability with LE MMT Hip Strength Hip Manual Muscle Testing Right Flexion (L2) 4+ Good+ Extension (S1) 3 Fair External Rotation 3+ Fair+ Comments Strength is 5/5 except as indicated above. Left Flexion (L2) 4+ Good+ Extension (S1) 3 Fair Adduction 2+ Poor+ External Rotation 3 Fair Comments Strength is 5/5 except as indicated above. PT-OP-Q Treatments Start: 09/25/23 17:58 Freq: Status: Active Protocol: Document 10/09/23 10:32 LRN (Rec: 10/09/23 11:21 LRN [id number]) Self-Care/Home Management Treatment Education Other Education Discussed results of evaluation, goals, and plan of care (POC) with pt, discussed attendance/cx/dns policy; pt agreeable to goals, attendance /cx/dns policy and POC. Discussed and educated pt in specifics for completion of in use of Bladder Diary and I/S in tracking for 1 week. Activities Self-Care/Home Management Activities Verbal and written instruction for HEP: breathing exercise with inhale to stretch PF and exhale to keep PF relaxed. PT-OP-T Assessment and Plan Start: 09/25/23 17:58 Freq: Status: Active Protocol: Document 10/09/23 10:32 LRN (Rec: 10/09/23 11:21 LRN [id number]) Physical Therapy Assessment Rehab Potential Rehabilitation Potential Good Evaluation Complexity Number of Personal Factors/Comorbidities 1-2 Number of Body Systems Impaired 4 or More Clinical Presentation at Evaluation Evolving Impairments Impairments Activity Tolerance,Posture,ROM ,Soft Tissue Mobility,Strength ,Tone,Transfers Other Impairments Pt not able to perform a proper deep breath. Decorticate posturing of wrist and hands when moving on plinth. Goals Three Impairment Pt not able to perform a proper deep breath. Short Term Goal (STG) Pt educated in breath techniques to stretch PF during deep breathing to reduce PF tone. STG Duration 4 wks-11/06/23 Physical Fitness Teacher Goal (LTG) Pt will be able to demonstrate ability to relax her PF ms after contraction and to lessen core abdominal pressure with transfers, minimizing onset of urinary leakage by end of day. LTG Duration 12 wks-01/01/24 Two Impairment Urinary incontinence due to tight PF muscles (superficial> deep) Impairment Occurances of loss of bladder control 2-3 episodes/month Large volume of leakage, that totally wets her carpet Short Term Goal (STG) Elimate tenderness of superficial PF muscles on palpation. STG Duration 6 wks-11/23/23 Skilled Nursing Goal (LTG) Relax PF muscles with pt able to contract her PF muscles to prevent urinary incontinence to 0-1/episode a month of light leakage. LTG Duration 12 wks-01/01/24 One Impairment Pt lacks an independent self care HEP. Short Term Goal (STG) Pt will be educated in self PF stretching with use of wand. STG Duration 4 wks-11/06/23 Skilled Nursing Goal (LTG) Pt will be independent in a self care HEP for PF relaxation to allow for PF contraction to maintain urinary control. LTG Duration 12 wks-01/01/24 Assessment Summary Assessment Pt is A 68 yo female who presents with PF tightness and tenderness and difficulty with relaxing the PF after contraction, engagement of substitute muscles to get a PF contraction, weakness and decreased mobility of hips (IR ) and core (flex, rot), improper deep breathing mechanics, dry external PF tissues, and LUE decorticate posturing when transitioning to different positions possibly resulting from seizures. The pt will benefit from skilled physical therapy to work towards achieving the above stated goals. Further assessment for possible traumatic brain injury involvement may be needed. Physical Therapy Plan Frequency and Duration Frequency of Treatment 1x/Week Duration of treatment (weeks) 12 Plan of Care Start Date 10/09/23 Plan of Care End Date 01/01/24 Therapeutic Interventions Therapeutic Interventions Home Exercise Program,Joint Mobilizations,Manual Therapy, Neuromuscular Re-education, Self-Care/Home Management,Soft Tissue Mobilization, Therapeutic Activities, Therapeutic Exercises Modalities Biofeedback Other Referrals/Consults Referrals/Consults Recommended Assessment for possible brain trauma due to notable UE decorticate positioning while moving on plinth. Next Visit Focus/Plan Next Note Type Treatment Note Next Visit Plan Babinski assessment, assess UE /LE DTR, assess UE tone. Review bladder diary, pt education and treatment as appropriate, proper Kegel without use of substitute muscles f/b focus on PF relaxation, use of intra- abdominal pressure for PF relaxation, deep breathing training, and proper breathing with transfers and body mechanics in PM. Ther Ex: PF/abdominals relaxation and stretching, core/hip strengthening and improve posture, improve hip IR and trunk flex, rot mobility. Educate/discuss Bowel care if needed after Bladder diary review (stool types, foods, water intake, educate & discuss Bowel massage), Neural Reeducation: Educate and discuss core/PF stabilization for proper abdominal pressure system, biofeedback for relaxation training. Manual therapy: Stretch to PF. POC: Pt education, Manual therapy. ?Biofeedback with vaginal sensor. Therapeutic Exercises, Therapeutic Activities, Neuromuscular Reeducation.
--- NOTE | 2023-10-09 19:41 | PT.OPPOC ---
Physical, Occupational & Speech Therapy At [facility] Current Diagnoses Unspecified urinary incontinence (10/09/23) Visit Care Team Role Provider Type Holly Henriquez DO Attending Provider Physician Family Provider Primary Care Provider Referring Provider Specialty: Family Practice Address: [address] [place] [address], [address], [address] Email: [email or web address] Plan Of Care PT-OP-T Assessment and Plan Start: 09/25/23 17:58 Freq: Status: Active Protocol: Document 10/09/23 10:32 LRN (Rec: 10/09/23 11:21 LRN [id number]) Physical Therapy Assessment Rehab Potential Rehabilitation Potential Good Evaluation Complexity Number of Personal Factors/Comorbidities 1-2 Number of Body Systems Impaired 4 or More Clinical Presentation at Evaluation Evolving Impairments Impairments Activity Tolerance,Posture,ROM ,Soft Tissue Mobility,Strength ,Tone,Transfers Other Impairments Pt not able to perform a proper deep breath. Decorticate posturing of wrist and hands when moving on plinth. Goals Three Impairment Pt not able to perform a proper deep breath. Short Term Goal (STG) Pt educated in breath techniques to stretch PF during deep breathing to reduce PF tone. STG Duration 4 wks-11/06/23 Intermediate Goal (LTG) Pt will be able to demonstrate ability to relax her PF ms after contraction and to lessen core abdominal pressure with transfers, minimizing onset of urinary leakage by end of day. LTG Duration 12 wks-01/01/24 Two Impairment Urinary incontinence due to tight PF muscles (superficial> deep) Impairment Occurances of loss of bladder control 2-3 episodes/month Large volume of leakage, that totally wets her carpet Short Term Goal (STG) Elimate tenderness of superficial PF muscles on palpation. STG Duration 6 wks-11/23/23 Intermediate Goal (LTG) Relax PF muscles with pt able to contract her PF muscles to prevent urinary incontinence to 0-1/episode a month of light leakage. LTG Duration 12 wks-01/01/24 One Impairment Pt lacks an independent self care HEP. Short Term Goal (STG) Pt will be educated in self PF stretching with use of wand. STG Duration 4 wks-11/06/23 Intermediate Goal (LTG) Pt will be independent in a self care HEP for PF relaxation to allow for PF contraction to maintain urinary control. LTG Duration 12 wks-01/01/24 Assessment Summary Assessment Pt is A 68 yo female who presents with PF tightness and tenderness and difficulty with relaxing the PF after contraction, engagement of substitute muscles to get a PF contraction, weakness and decreased mobility of hips (IR ) and core (flex, rot), improper deep breathing mechanics, dry external PF tissues, and LUE decorticate posturing when transitioning to different positions possibly resulting from seizures. The pt will benefit from skilled physical therapy to work towards achieving the above stated goals. Further assessment for possible traumatic brain injury involvement may be needed. Physical Therapy Plan Frequency and Duration Frequency of Treatment 1x/Week Duration of treatment (weeks) 12 Plan of Care Start Date 10/09/23 Plan of Care End Date 01/01/24 Therapeutic Interventions Therapeutic Interventions Home Exercise Program,Joint Mobilizations,Manual Therapy, Neuromuscular Re-education, Self-Care/Home Management,Soft Tissue Mobilization, Therapeutic Activities, Therapeutic Exercises Modalities Biofeedback Other Referrals/Consults Referrals/Consults Recommended Assessment for possible brain trauma due to notable UE decorticate positioning while moving on plinth. Next Visit Focus/Plan Next Note Type Treatment Note Next Visit Plan Babinski assessment, assess UE /LE DTR, assess UE tone. Review bladder diary, pt education and treatment as appropriate, proper Kegel without use of substitute muscles f/b focus on PF relaxation, use of intra- abdominal pressure for PF relaxation, deep breathing training, and proper breathing with transfers and body mechanics in PM. Ther Ex: PF/abdominals relaxation and stretching, core/hip strengthening and improve posture, improve hip IR and trunk flex, rot mobility. Educate/discuss Bowel care if needed after Bladder diary review (stool types, foods, water intake, educate & discuss Bowel massage), Neural Reeducation: Educate and discuss core/PF stabilization for proper abdominal pressure system, biofeedback for relaxation training. Manual therapy: Stretch to PF. POC: Pt education, Manual therapy. ?Biofeedback with vaginal sensor. Therapeutic Exercises, Therapeutic Activities, Neuromuscular Reeducation. Plan of Care Dates Plan of Care Start Date 10/09/23 Plan of Care End Date 01/01/24 Electronically Signed by: Celine Mireles, PT 10/09/23 1941 If you are in agreement with this Plan of Care, please return a signed and dated copy. I have reviewed this Plan of Care and certify that the skilled therapy services above are required to meet the patient?s needs. Physician Signature Date Printed Name and Credentials Clinical Instructor Signature Printed Name and Credentials
--- NOTE | 2023-10-18 12:47 | PT.OTN ---
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 Polyps excised last year, 12/2017 Within the cecum was a polyp which I chose to snare. It appeared to be completely removed. The scope was gradually brought out. Polyp anal verge. PT-OP-B Current Condition Start: 09/25/23 17:58 Freq: Status: Active Protocol: Document 10/09/23 10:32 LRN (Rec: 10/09/23 11:21 LRN [id number]) Current Condition History of Current Condition Onset Date 2 yrs ago Current Complaints Random, total incontinence of urine History of Current Condition Pt states she has random uncontrollable loss of urine several times a month, towards the end of the night, standing to change clothes and has totally loss of bladder control, totally soaking her carpets (2-3 episodes/month). She states it is not so severe that she wears pads. 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 Pt reports she is concerned that her condition may be hereditary her mother had permanent cathertization after having children. Prior Treatments and Tests Bladder test (couple of months ago) described as urodynamic testing. Found cholesterol deposits in bladder. Developmental History Developmental History No pregnancies or births. x 2. Treatment Goals Patient/Caregiver Goals Pt goals: Strengthen the PF muscles and reduce the occurances of loss of control to 0-1 episode/month or reduce amount of volume of leakage, so not totally wetting the carpet, HEP. 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 PT-OP-C Subjective Start: 09/25/23 17:58 Freq: Status: Active Protocol: Document 10/18/23 11:24 LRN (Rec: 10/18/23 12:46 LRN [id number]) OP-PT Subjective Patient Comments Patient Comments Noticed voiding times varied a lot. States sometimes the flow is steady and sometimes there is a hesitancy in the flow. PT-OP-I Pelvic Floor Start: 09/25/23 17:58 Freq: Status: Active Protocol: Document 10/09/23 10:32 LRN (Rec: 10/09/23 11:21 LRN [id number]) Pelvic Floor Assessment Urine Urinary Symptoms Hesitancy Other Urinary Symptoms Hesitancy after initial voiding and sometimes at start of urination. Heaviness and pressure before urinating sometimes. Voiding Frequency 10-12 per day Nocturia 1-2 Bowel Other Bowel Symptoms Takes stool softner daily, sometimes has diahrrea. Pelvic Clock Pelvic Clock 12-3 Tenderness,Tightness Pelvic Clock 3-6 Tenderness,Tightness Pelvic Clock 6-9 Tenderness,Tightness Pelvic Clock 9-12 Tenderness,Tightness Perineal Descent Resting Absent Bearing Absent Contraction Ability Voluntary Contraction Moderate Voluntary Relaxation Absent Manual Muscle Testing Left 3 Manual Muscle Testing Right 3 Manual Muscle Testing Anterior 3 Manual Muscle Testing Posterior 3 Muscle Endurance (Seconds) 8 Number of Quick Contractions In 10 2 Seconds Comments Pelvic Floor Comments Pt has very dry external PF tissues and a very small vaginal opening. PT-OP-J Posture/Palpation/Skin Start: 09/25/23 17:58 Freq: Status: Active Protocol: Document 10/09/23 10:32 LRN (Rec: 10/09/23 11:21 LRN [id number]) Posture Evaluation Position Standing Head/C-Spine Posture Side Bent Left T-Spine Posture Flattened L-Spine Posture Increased Lordosis Shoulder Posture (R) Elevated Pelvis Posture Anteriorly Tilted Weight Distribution Balanced PT-OP-K Range of Motion Start: 09/25/23 17:58 Freq: Status: Active Protocol: Document 10/09/23 10:32 LRN (Rec: 10/09/23 11:21 LRN [id number]) Lumbar Spine Range of Motion Lumbar Spine Active Degrees Testing Position Standing Flexion 67 Extension 10 Rotation Left 10 Rotation Right 10 Lateral Flexion Left 12 Lateral Flexion Right 12 Comments Rotation is approximation. Hip Goniometric Range of Motion Hip Right Passive Testing Position Supine Internal Rotation 10 External Rotation 75 Left Passive Testing Position Supine Internal Rotation 10 External Rotation 70 PT-OP-M Strength Start: 09/25/23 17:58 Freq: Status: Active Protocol: Document 10/09/23 10:32 LRN (Rec: 10/09/23 11:21 LRN [id number]) Trunk Strength Trunk Manual Muscle Testing Core Stabilization Not able to maintain core stability with LE MMT Hip Strength Hip Manual Muscle Testing Right Flexion (L2) 4+ Good+ Extension (S1) 3 Fair External Rotation 3+ Fair+ Comments Strength is 5/5 except as indicated above. Left Flexion (L2) 4+ Good+ Extension (S1) 3 Fair Adduction 2+ Poor+ External Rotation 3 Fair Comments Strength is 5/5 except as indicated above. PT-OP-Q Treatments Start: 09/25/23 17:58 Freq: Status: Active Protocol: Document 10/18/23 11:24 LRN (Rec: 10/18/23 12:46 LRN [id number]) Therapeutic Exercises Supine Exercises Child's Pose Reps/Minutes 5' Happy Baby Pose Supine Exercise Name Modified Happy Baby pose (KTC modified) & Happy Baby Pose Reps/Minutes 8' deep breathing Supine Exercise Name 6 sec breaths Reps/Minutes 3' Comments Cued to not hold breath but to work up to 6 secs Self-Care/Home Management Treatment Education Other Education Pt lead, extensive discussion, of plan of care to date and her voicing concern that all her treatment has been what she felt was only assessment, and at time of discussion was all about assessment, as talk was beginning on bladder review. Was not able to review bladder diary due to pt lead discussion. Discussion of last visit evaluation assessment of areas of soft tissue and mechanical dysfunction involved with improving pt's condition of occasional loss of bladder control and brief showing of PF anatomy. Activities Self-Care/Home Management Activities Issued HEP: Written I/S for modified Happy Baby Pose of KTC stretch on Happy Baby pose picture; Child's pose. PT-OP-T Assessment and Plan Start: 09/25/23 17:58 Freq: Status: Active Protocol: Document 10/18/23 11:24 LRN (Rec: 10/18/23 12:46 LRN [id number]) Physical Therapy Assessment Goals Three Impairment Pt not able to perform a proper deep breath. Short Term Goal (STG) Pt educated in breath techniques to stretch PF during deep breathing to reduce PF tone. STG Duration 4 wks-11/06/23 Scrap Collector Goal (LTG) Pt will be able to demonstrate ability to relax her PF ms after contraction and to lessen core abdominal pressure with transfers, minimizing onset of urinary leakage by end of day. LTG Duration 12 wks-01/01/24 Two Impairment Urinary incontinence due to tight PF muscles (superficial> deep) Impairment Occurances of loss of bladder control 2-3 episodes/month Large volume of leakage, that totally wets her carpet Short Term Goal (STG) Elimate tenderness of superficial PF muscles on palpation. STG Duration 6 wks-11/23/23 Scrap Collector Goal (LTG) Relax PF muscles with pt able to contract her PF muscles to prevent urinary incontinence to 0-1/episode a month of light leakage. LTG Duration 12 wks-01/01/24 One Impairment Pt lacks an independent self care HEP. Short Term Goal (STG) Pt will be educated in self PF stretching with use of wand. STG Duration 4 wks-11/06/23 Scrap Collector Goal (LTG) Pt will be independent in a self care HEP for PF relaxation to allow for PF contraction to maintain urinary control. LTG Duration 12 wks-01/01/24 Assessment Summary Assessment Pt is a 68 yo female w/PF tightness and tenderness and difficulty with relaxing the PF after contraction, engagement of substitute muscles to get a PF contraction, weakness and decreased mobility of hips (IR ) and core (flex, rot), dry external PF tissues, and LUE decorticate posturing when transitioning to different positions. Today, due to her frustration of her feeling like PT thus far has only been assessment, discussion of her bladder diary was not well understood or received by pt ( discussion of core pressure management as related to constipation, affect on bladder, mechanical dysfunction of voiding, etc). Therefore, bladder diary review will be done at next visit to discuss lack of fluid intake, norms for voiding times, bladder irritants & increase in vegs/fruits, Bowel massage). The pt was able to demonstrate improved deep breathing mechanics, but awareness of PF lifting/ relaxing was not noted. Babinski assessment was negative, bilaterally. Physical Therapy Plan Frequency and Duration Frequency of Treatment 1x/Week Duration of treatment (weeks) 12 Plan of Care Start Date 10/09/23 Plan of Care End Date 01/01/24 Next Visit Focus/Plan Next Note Type Treatment Note Next Visit Plan Assess UE/LE DTR, monitor for UE tone. Next: Pt PF stretching with wand and Review bladder diary, pt education/training for proper Kegel without use of substitute muscles f/b focus on PF relaxation, use of intra -abdominal pressure for PF relaxation, and with transfers and body mechanics in PM. Ther Ex: PF/abdominals relaxation and stretching, core/hip strengthening and improve posture, improve hip IR and trunk flex, rot mobility. Educate/discuss Bowel care ( foods, water intake, Bowel massage), Neural Reeducation: Educate and discuss core/PF stabilization (for proper abdominal pressure system), biofeedback for relaxation training. Manual therapy: Stretch to PF. POC: PF for tightness and ocassional complete loss of urine, long urination times. Pt education, Manual therapy. ?Biofeedback with vaginal sensor. Therapeutic Exercises, Therapeutic Activities, Neuromuscular Reeducation.
--- NOTE | 2024-06-26 16:29 | PT.OPDS ---
Current Diagnoses Unspecified urinary incontinence (10/18/23) Visit Care Team Role Provider Type Holly Henriquez DO Attending Provider Physician Family Provider Primary Care Provider Referring Provider Specialty: Family Practice Address: [address] [place] [address], [address], [facility] Email: [email or web address] Visit Number Visit Number 2 Discharge Summary PT-OP-B Current Condition Start: 09/25/23 17:58 Freq: Status: Active Protocol: Document 10/09/23 10:32 LRN (Rec: 10/09/23 11:21 LRN [id number]) Current Condition History of Current Condition Onset Date 2 yrs ago Current Complaints Random, total incontinence of urine History of Current Condition Pt states she has random uncontrollable loss of urine several times a month, towards the end of the night, standing to change clothes and has totally loss of bladder control, totally soaking her carpets (2-3 episodes/month). She states it is not so severe that she wears pads. 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 Pt reports she is concerned that her condition may be hereditary her mother had permanent cathertization after having children. Prior Treatments and Tests Bladder test (couple of months ago) described as urodynamic testing. Found cholesterol deposits in bladder. Developmental History Developmental History No pregnancies or births. x 2. Treatment Goals Patient/Caregiver Goals Pt goals: Strengthen the PF muscles and reduce the occurances of loss of control to 0-1 episode/month or reduce amount of volume of leakage, so not totally wetting the carpet, HEP. 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 PT-OP-C Subjective Start: 09/25/23 17:58 Freq: Status: Active Protocol: Document 10/18/23 11:24 LRN (Rec: 10/18/23 12:46 LRN [id number]) OP-PT Subjective Patient Comments Patient Comments Noticed voiding times varied a lot. States sometimes the flow is steady and sometimes there is a hesitancy in the flow. PT-OP-I Pelvic Floor Start: 09/25/23 17:58 Freq: Status: Active Protocol: Document 10/09/23 10:32 LRN (Rec: 10/09/23 11:21 LRN [id number]) Pelvic Floor Assessment Urine Urinary Symptoms Hesitancy Other Urinary Symptoms Hesitancy after initial voiding and sometimes at start of urination. Heaviness and pressure before urinating sometimes. Voiding Frequency 10-12 per day Nocturia 1-2 Bowel Other Bowel Symptoms Takes stool softner daily, sometimes has diahrrea. Pelvic Clock Pelvic Clock 12-3 Tenderness,Tightness Pelvic Clock 3-6 Tenderness,Tightness Pelvic Clock 6-9 Tenderness,Tightness Pelvic Clock 9-12 Tenderness,Tightness Perineal Descent Resting Absent Bearing Absent Contraction Ability Voluntary Contraction Moderate Voluntary Relaxation Absent Manual Muscle Testing Left 3 Manual Muscle Testing Right 3 Manual Muscle Testing Anterior 3 Manual Muscle Testing Posterior 3 Muscle Endurance (Seconds) 8 Number of Quick Contractions In 10 2 Seconds Comments Pelvic Floor Comments Pt has very dry external PF tissues and a very small vaginal opening. PT-OP-J Posture/Palpation/Skin Start: 09/25/23 17:58 Freq: Status: Active Protocol: Document 10/09/23 10:32 LRN (Rec: 10/09/23 11:21 LRN [id number]) Posture Evaluation Position Standing Head/C-Spine Posture Side Bent Left T-Spine Posture Flattened L-Spine Posture Increased Lordosis Shoulder Posture (R) Elevated Pelvis Posture Anteriorly Tilted Weight Distribution Balanced PT-OP-K Range of Motion Start: 09/25/23 17:58 Freq: Status: Active Protocol: Document 10/09/23 10:32 LRN (Rec: 10/09/23 11:21 LRN [id number]) Lumbar Spine Range of Motion Lumbar Spine Active Degrees Testing Position Standing Flexion 67 Extension 10 Rotation Left 10 Rotation Right 10 Lateral Flexion Left 12 Lateral Flexion Right 12 Comments Rotation is approximation. Hip Goniometric Range of Motion Hip Right Passive Testing Position Supine Internal Rotation 10 External Rotation 75 Left Passive Testing Position Supine Internal Rotation 10 External Rotation 70 PT-OP-M Strength Start: 09/25/23 17:58 Freq: Status: Active Protocol: Document 10/09/23 10:32 LRN (Rec: 10/09/23 11:21 LRN [id number]) Trunk Strength Trunk Manual Muscle Testing Core Stabilization Not able to maintain core stability with LE MMT Hip Strength Hip Manual Muscle Testing Right Flexion (L2) 4+ Good+ Extension (S1) 3 Fair External Rotation 3+ Fair+ Comments Strength is 5/5 except as indicated above. Left Flexion (L2) 4+ Good+ Extension (S1) 3 Fair Adduction 2+ Poor+ External Rotation 3 Fair Comments Strength is 5/5 except as indicated above. PT-OP-T Assessment and Plan Start: 09/25/23 17:58 Freq: Status: Active Protocol: Document 06/26/24 16:24 LRN (Rec: 06/26/24 16:28 LRN [id number]) Physical Therapy Assessment Goals Three Impairment Pt not able to perform a proper deep breath. Short Term Goal (STG) Pt educated in breath techniques to stretch PF during deep breathing to reduce PF tone. STG Duration 4 wks-11/06/23 NOT MET GOAL due to lack of attendance. Usp Goal (LTG) Pt will be able to demonstrate ability to relax her PF ms after contraction and to lessen core abdominal pressure with transfers, minimizing onset of urinary leakage by end of day. LTG Duration 12 wks-01/01/24 NOT MET GOAL due to lack of attendance. Two Impairment Urinary incontinence due to tight PF muscles (superficial> deep) Impairment Occurances of loss of bladder control 2-3 episodes/month Large volume of leakage, that totally wets her carpet Short Term Goal (STG) Elimate tenderness of superficial PF muscles on palpation. STG Duration 6 wks-11/23/23 NOT MET GOAL due to lack of attendance. Motorman/Woman Goal (LTG) Relax PF muscles with pt able to contract her PF muscles to prevent urinary incontinence to 0-1/episode a month of light leakage. LTG Duration 12 wks-01/01/24 NOT MET GOAL due to lack of attendance. One Impairment Pt lacks an independent self care HEP. Short Term Goal (STG) Pt will be educated in self PF stretching with use of wand. STG Duration 4 wks-11/06/23 NOT MET GOAL due to lack of attendance. Motorman/Woman Goal (LTG) Pt will be independent in a self care HEP for PF relaxation to allow for PF contraction to maintain urinary control. LTG Duration 12 wks-01/01/24 NOT MET GOAL due to lack of attendance. Assessment Summary Assessment Pt is a 68 yo female being seen for PF tightness and tenderness and difficulty with relaxing the PF after contraction, engagement of substitute muscles to get a PF contraction, weakness and decreased mobility of hips (IR ) and core (flex, rot), dry external PF tissues, and LUE decorticate posturing when transitioning to different positions. The pt was seen for her evaluation and one treatment visit on 10/18/23; therefore the pt did not meet her goals. Her plan of care has ; therefore if the pt needs further therapy she will need a new referral to return. Physical Therapy Plan Discharge Physical Therapy Discharge Comments Thank you for your referral.
== END 2024-07-03 08:43 | disposition home or self-care (01) ==
LOC: PHYS 11:15
PROVIDERS: Family Provider Family Medicine; PCP Family Medicine; Referring Provider Family Medicine; Visit Provider Family Medicine
DX: R32 Unspecified urinary incontinence (principal)
CPT/HCPCS: 97110; 97162; 97535

== ENCOUNTER → 2024-04-21 10:54 | Outpatient (CLI) | payer MEDICARE, MEDICAID, SELFPAY ==
--- NOTE | 2024-04-21 10:56 | DI.MG.S_ITS ---
BILATERAL DIGITAL SCREENING MAMMOGRAM 3D/2D WITH CAD: 04/21/2024 CLINICAL: Routine screening. Family history breast cancer. Comparison is made to exams dated: 04/19/2023 mammogram, 04/18/2022 mammogram, and 03/29/2021 mammogram - [facility]. There are scattered areas of fibroglandular density (category b / 25%-50% glandular tissue). Current study was also evaluated with a Computer Aided Detection (CAD) system. There are benign calcifications in both breasts. No significant masses, calcifications, or other findings are seen in either breast. There has been no significant interval change. IMPRESSION: BENIGN There is no mammographic evidence of malignancy. A 1 year screening mammogram is recommended. Based on the Tyrer Cuzick model (a risk assessment model) the patient's lifetime risk is 6.3% and her 10 year risk is 3.5%. According to the ACR, ACS, and NCCN guidelines, an annual breast MRI exam along with mammogram is recommended if the patient's lifetime risk is 20% or greater. This exam was interpreted at Station ID: [id number]. NOTE: For mammograms, a report in lay terms will be sent to the patient. Approximately 15% of breast malignancies will not be visualized mammographically. In the management of a palpable breast mass, a negative mammogram must not discourage biopsy of a clinically suspicious lesion. Electronically Signed By: Ralph bales/janet:04/21/2024 13:59:45 letter sent: Normal Exam ACR BI-RADS Category 2: Benign
== END ==
PROVIDERS: Family Provider Family Medicine; PCP Family Medicine; Referring Provider Family Medicine; Visit Provider Family Medicine
DX: Z12.31 Encounter for screening mammogram for malignant neoplasm of breast (principal); Z80.3 Family history of malignant neoplasm of breast
CPT/HCPCS: 77063; 77067

== ENCOUNTER → 2024-04-23 15:17 | Outpatient (CLI) | payer MEDICARE, MEDICAID, SELFPAY ==
--- NOTE | 2024-04-23 15:19 | DI.RAD.S_ITS ---
PROCEDURE: XR FOOT RT MIN 3V INDICATIONS: pain to 3/4/5 digits x 1 year, hx skiing accident 30 yrs ago TECHNIQUE: 3 views of the foot were acquired. COMPARISON: [facility], , FOOT 3V LEFT, 07/10/2017, 17:36. FINDINGS: Bones: No fractures or dislocations. No suspicious bony lesions. Soft tissues: No tibiotalar joint effusion. Achilles tendon appears normal. IMPRESSION: No acute bony abnormality. Dictated by: Fidencio Rodriguez M.D. on 04/23/2024 at 20:27 Approved by: Fidencio Rodriguez M.D. on 04/23/2024 at 20:28
[2024-04-23 18:14] LABS: Alanine Aminotransferase 26 IU/L (<35); Albumin 4.4 g/dL (3.5-5.0); Albumin Globulin Ratio 1.9 (1.0-2.8); Alkaline Phosphatase 116 U/L (38-126); Aspartate Aminotransferase 28 IU/L (14-36); Bilirubin Total 0.4 mg/dL (0.2-1.3); Blood Urea Nitrogen 19 mg/dL (7-17); Calcium 9.3 mg/dL (8.4-10.2); Carbon Dioxide 24 mmol/L (22-32); Chloride 105 mmol/L (98-107); Estimated Glomerular Filt Rate > 60 mL/min (>60); Globulin 2.3 g/dL (1.7-4.1); Glucose 91 mg/dL (80-110); HEMOLYSIS < 15 (0-50); Potassium 4.1 mmol/L (3.4-5.1); Sodium 137 mmol/L (137-145); Total Protein 6.7 g/dL (6.3-8.2)
== END ==
LOC: RAD 15:18
PROVIDERS: Family Provider Family Medicine; PCP Family Medicine; Referring Provider Physician Assistant; Visit Provider Physician Assistant
DX: M79.676 Pain in unspecified toe(s) (principal); F10.90 Alcohol use, unspecified, uncomplicated; G47.00 Insomnia, unspecified; F32.A Depression, unspecified
CPT/HCPCS: 36415; 73630; 80053

== ENCOUNTER 2024-07-01 12:08 | Emergency (ER) | payer MEDICARE, MEDICAID, SELFPAY ==
[2024-07-01 12:24] VITALS: BP 162/84; PULSE 92; RESP 18; TEMP 37.1; O2SAT 100; BMI 29.2
--- NOTE | 2024-07-01 13:23 | ED.WOUNDLAC ---
HPI - Wound/Laceration <Megan Owens PA-C - Last Filed: 07/01/24 13:37> General Chief Complaint: Wound/Laceration Stated Complaint: right ear lobe split in half- was bleeding Time Seen by Provider: 07/01/24 12:47 History of Present Illness HPI narrative: 69-year-old female presents to the ED with a torn right earlobe. Patient states that it happened at about 10 30 this morning, when her noticed a bit of blood on her right earlobe. Patient states she did not have a hearing in this morning. No trauma. Patient had earrings on yesterday, which she took out prior to going to bed. Earrings were not heavier than usual. Bleeding is controlled. Related Data Home Medications Medication Instructions Recorded Confirmed ascorbic acid (vitamin C) 500 mg 500 mg PO .QD 03/13/22 04/23/24 capsule famotidine 20 mg tablet See Rx Instructions PO .COMPLEX 03/13/22 04/23/24 cholecalciferol (vitamin D3) 50 50 mcg PO BID 06/06/23 04/23/24 mcg (2,000 unit) capsule stool softner 5 cap PO .QD 06/06/23 04/23/24 topiramate 100 mg tablet 100 mg PO BID 08/23/23 04/23/24 melatonin 1 mg chewable tablet 2 mg PO BEDTIME PRN 04/23/24 04/23/24 (Kids Melatonin) Previous Rx's Medication Instructions Recorded aspirin 81 mg tablet,delayed 81 mg PO DAILY aps #90 tabs 05/25/22 release lisinopril 10 mg tablet 10 mg PO DAILY #90 tabs 12/21/23 venlafaxine 150 mg 150 mg PO BEDTIME #90 caps 02/11/24 capsule,extended release 24 hr levetiracetam 250 mg tablet 250 mg PO BID #180 tabs 04/10/24 olanzapine 5 mg tablet 2.5 mg (1/2 x 5 mg) PO BEDTIME #45 05/26/24 tabs atorvastatin 40 mg tablet 40 mg PO BEDTIME #90 tabs 06/02/24 levothyroxine 112 mcg tablet 112 mcg PO DAILY #90 tabs 06/23/24 ezetimibe 10 mg tablet 10 mg PO BEDTIME #90 tabs 07/01/24 Allergies Allergy/AdvReac Type Severity Reaction Status Date / Time amoxicillin [AMOXICILLIN] Allergy Unknown Rash Verified 04/23/24 14:34 Penicillins Allergy Rash Verified 04/23/24 14:34 Sulfa (Sulfonamide Allergy Rash Verified 04/23/24 14:34 Antibiotics) adhesive tape AdvReac Unknown Redness of Verified 04/23/24 14:34 Skin Review of Systems <Megan Owens PA-C - Last Filed: 07/01/24 13:37> Constitutional Constitutional: Denies chills, Denies fatigue, Denies fever(s), Denies frequent falls, Denies lethargy and Denies weakness Eyes Eyes: Denies change in vision, Denies eye discharge, Denies irritation and Denies loss of vision ENT Ears, Nose, Mouth, and Throat: Denies change in voice, Denies dizziness, Denies neck pain, Denies sore throat and Denies throat swelling Comments: R split earlobe Cardiovascular Cardiovascular: Denies chest pain, Denies irregular heart rhythm, Denies lightheadedness, Denies palpitations, Denies dyspnea, Denies dyspnea on exertion and Denies orthopnea Respiratory Respiratory: Denies cough, Denies dyspnea, Denies dyspnea on exertion and Denies wheezing Gastrointestinal Gastrointestinal: Denies abdominal pain, Denies change in bowel habits, Denies diarrhea, Denies nausea and Denies vomiting Musculoskeletal Musculoskeletal: Denies neck pain and Denies numbness Integumentary/Breasts Skin/Breast: Denies pruritus, Denies erythema, Denies rash and Denies wounds Neurologic Neurologic: Denies behavioral changes, Denies confusion, Denies dizziness, Denies frequent falls, Denies loss of vision, Denies numbness and Denies weakness Psychiatric Psychiatric: Denies anxiety, Denies behavioral changes, Denies confusion, Denies depression, Denies homicidal ideation and Denies suicidal ideation Endocrine Endocrine: Denies fatigue, Denies flushing and Denies palpitations Hematologic/Lymphatic Hematologic/Lymphatic: Denies easy bruising Allergic/Immunologic Allergic/Immunologic: Denies urticaria, Denies throat swelling and Denies wheezing Patient History <Megan Owens PA-C - Last Filed: 07/01/24 13:37> Medical History Age related osteoporosis Uses hearing aid Hearing Loss Lupus Antiphospholipid antibody syndrome Mixed hyperlipidemia Sebaceous cyst Psoriasis Plantar warts Eczema Acne Depression Anxiety Seizures Mumps Measles Chicken pox Anemia Scar of middle ear History of recurrent ear infection Hearing loss Painful menstrual periods Irregular menstrual cycle Human papilloma virus History of urinary incontinence Irritable bowel syndrome GERD (gastroesophageal reflux disease) Gastric ulcer Diverticular disease Colon polyps Pituitary adenoma Hypertension Hypothyroidism Post menopausal problems H/O: depression Hyperlipidemia Temporal lobe epilepsy Surgical History Anesthesia [place] teeth removed Plantar warts History of tonsillectomy and adenoidectomy Family History Father Hypertension Stroke Cancer Brother Hypertension Stroke Diabetes mellitus Cancer History of heart disease Mental health problem Mother Dementia Grandfather Cancer Grandmother Cancer Grandfather Cancer Social History marital status: household members: spouse lives independently: Yes occupational status: previously employed Smoking Status: Never smoker alcohol intake: current substance use type: does not use Smoking Status: Never smoker alcohol intake frequency: 3 or more drinks per day Exam <Megan Owens PA-C - Last Filed: 07/01/24 13:37> Narrative Exam Narrative: Const General:?cooperative, healthy appearing and comfortable [facility] Head:?normal to inspection Ears:?hearing grossly normal bilaterally; right earlobe appears to be split in half from the ear piercing down to the edge. There is a small amount of blood at the very tip only. It appears that the earlobe had been split up to the very end for awhile, and was hanging by just the tip which gave out yesterday/today. Not bleeding currently. No signs of infection. Nose:?external nose normal Face and sinus:?normal facial exam and sinuses nontender Mouth:?oral mucosae normal Throat:?posterior oropharynx normal Eyes General:?appearance normal, both eyes and all related structures Neck Neck:?normal visual inspection and no lymphadenopathy noted Resp Effort & Inspection:?normal respiratory effort Auscultation:?clear to auscultation bilaterally Cardio Rate:?regular rate Rhythm:?regular rhythm Neuro General:?patient alert, patient awake and patient oriented x3 Initial Vital Signs Initial Vital Signs: Vital Signs Temperature 98.8 F 07/01/24 12:24 Pulse Rate 92 H 07/01/24 12:24 Respiratory Rate 18 07/01/24 12:24 Blood Pressure 162/84 H 07/01/24 12:24 Pulse Oximetry 100 07/01/24 12:24 Oxygen Delivery Method Room Air 07/01/24 12:24 <DO Melo Amato Last Filed: 07/06/24 07:50> Initial Vital Signs Initial Vital Signs: Vital Signs Temperature 98.8 F 07/01/24 12:24 Pulse Rate 92 H 07/01/24 12:24 Respiratory Rate 18 07/01/24 12:24 Blood Pressure 162/84 H 07/01/24 12:24 Pulse Oximetry 100 07/01/24 12:24 Oxygen Delivery Method Room Air 07/01/24 12:24 Course <Megan Owens PA-C - Last Filed: 07/01/24 13:37> Vital Signs Vital signs: Vital Signs - 8 hr 07/01/24 12:24 Temperature 98.8 F Pulse Rate 92 H Respiratory Rate 18 Blood Pressure 162/84 H Pulse Oximetry 100 Oxygen Delivery Method Room Air <DO Melo Amato Last Filed: 07/06/24 07:50> Vital Signs Vital signs: Vital Signs - 8 hr 07/01/24 12:24 Temperature 98.8 F Pulse Rate 92 H Respiratory Rate 18 Blood Pressure 162/84 H Pulse Oximetry 100 Oxygen Delivery Method Room Air MDM - Wound/Laceration <SEAN Nesbitt Last Filed: 07/01/24 13:37> MDM Narrative Medical decision making narrative: 69-year-old female presents to the ED with a torn right earlobe. The right earlobe appears to be split in half from the ear piercing down to the edge. There is a small amount of blood at the very tip only. It appears that the earlobe had been split up to the very end for awhile, and was hanging by just the tip which gave out yesterday/today. Not bleeding currently. No signs of infection. Given that the earlobe has already healed and this is a very old tear, recommend that patient follow-up with a plastic surgeon for appropriate repair. Recommend follow-up with PCP for appropriate referrals. ED return precautions discussed with patient. Patient verbalized understanding. Medical records reviewed: Yes Discharge Plan Departure Patient Disposition: Home Clinical Impression: Tear of right earlobe Qualifiers: Encounter type: initial encounter Qualified Code(s): S01.311A - Laceration without foreign body of right ear, initial encounter Instructions: DI for Minor Laceration Activity Restrictions/Additional Instructions: You were evaluated in the ED today for a earlobe tear. It appears that your earlobe has been injured for awhile and most of the length of it has already healed. It appears that only the very tip toward this morning. Given that the laceration has already healed, it is recommended that you follow-up with a plastic surgeon for earlobe repair. Given that this has already healed, it is not time sensitive and can be fixed at any time. Please follow-up with your PCP if you need any referrals to plastic surgery. Return to the ED if you have worsening symptoms. Prescriptions: No Action lisinopril 10 mg tablet 10 mg PO DAILY Qty: 90 2RF venlafaxine 150 mg capsule,extended release 24hr 150 mg PO BEDTIME Qty: 90 1RF Rx Instructions: Take 1 tab (150mg) at bedtime daily. levetiracetam 250 mg tablet 250 mg PO BID Qty: 180 0RF olanzapine 5 mg tablet 2.5 mg PO BEDTIME Qty: 45 0RF Rx Instructions: Take 1/2 tab at bedtime daily atorvastatin 40 mg tablet 40 mg PO BEDTIME Qty: 90 1RF levothyroxine 112 mcg tablet 112 mcg PO DAILY Qty: 90 1RF ezetimibe 10 mg tablet 10 mg PO BEDTIME Qty: 90 1RF stool softner 5 cap PO .QD cholecalciferol (vitamin D3) 50 mcg (2,000 unit) capsule 50 mcg PO BID Rx Instructions: take 1 capsule twice per day topiramate 100 mg tablet 100 mg PO BID Rx Instructions: take 100mg in the morning and 200mg at bedtime famotidine 20 mg tablet See Rx Instructions PO .COMPLEX Rx Instructions: Take 20mg in the morning and 20mg in the evening ascorbic acid (vitamin C) 500 mg capsule 500 mg PO .QD Patient Comments: spring Vit D 3 2000IU melatonin [Kids Melatonin] 1 mg tablet,chewable 2 mg PO BEDTIME PRN aspirin 81 mg Tablet,Delayed Release (Dr/Ec) 81 mg PO DAILY Qty: 90 4RF Referrals: Holly Henriquez DO [Primary Care Provider] - Stand Alone Forms: Patient Portal/API/Survey ED Sign-out <Renetta Joy DO - Last Filed: 07/06/24 07:50> Cosign ED Attending Cosignature Attestation: I was immediately available in the department for consultation.
== END 2024-07-01 13:36 | disposition home or self-care (01) ==
PROVIDERS: Emergency Provider Student in an Organized Health Care Education/Training Program; Family Provider Family Medicine; PCP Family Medicine
DX: S01.311A Laceration without foreign body of right ear, initial encounter (principal)
CPT/HCPCS: 99282

== ENCOUNTER → 2024-07-31 15:01 | Outpatient (CLI) | payer MEDICARE, MEDICAID, SELFPAY ==
[2024-07-31 15:42] LABS: Add Manual Diff / Slide Review NO; Basophils Absolute Auto 0 /uL (0-100); Basophils Percent Auto 0.1 % (0-2); Eosinophils Absolute Auto 0 /uL (0-450); Hematocrit 40.3 % (36-46); Hemoglobin 13.4 g/dL (12.0-16.0); Lymphocytes Absolute Auto 1400 /uL (1100-4500); Mean Corpuscular HGB Conc 33.2 % (30-36); Mean Corpuscular Volume 96.4 fL (80-100); Monocytes Absolute Auto 400 /uL (0-900); Monocytes Percent Auto 5.9 % (3-14); Neutrophils Absolute Auto 5000 /uL (1500-7000); Platelet Count 283 X10^3/uL (150-400); Red Blood Cell Count 4.18 X10^6/uL (4.0-5.2); Red Cell Distribution Width 13.3 % (11.6-14.8); White Blood Cell Count 6.9 X10^3/uL (4.5-11.0)
[2024-07-31 16:02] LABS: Alanine Aminotransferase 44 IU/L (<35); Albumin 4.8 g/dL (3.5-5.0); Albumin Globulin Ratio 1.7 (1.0-2.8); Alkaline Phosphatase 104 U/L (38-126); Aspartate Aminotransferase 35 IU/L (14-36); BUN Creatinine Ratio 17.4 (6-22); Bilirubin Total 0.6 mg/dL (0.2-1.3); Blood Urea Nitrogen 16 mg/dL (7-17); Calcium 10.3 mg/dL (8.4-10.2); Carbon Dioxide 26 mmol/L (22-32); Chloride 103 mmol/L (98-107); Estimated Glomerular Filt Rate > 60 mL/min (>60); Globulin 2.9 g/dL (1.7-4.1); Glucose 108 mg/dL (80-110); HEMOLYSIS < 15 (0-50); Potassium 4.2 mmol/L (3.4-5.1); Sodium 139 mmol/L (137-145); Total Protein 7.7 g/dL (6.3-8.2)
[2024-07-31 19:08] LABS: Free T4, Direct Thyroxine 1.19 ng/dL (0.78-2.19)
== END ==
PROVIDERS: Family Provider Family Medicine; PCP Family Medicine; Referring Provider Physician Assistant; Visit Provider Physician Assistant
DX: R63.0 Anorexia (principal)
CPT/HCPCS: 36415; 80053; 84439; 84443; 85025

== ENCOUNTER 2024-08-06 15:22 | Emergency (ER) | payer MEDICARE, MEDICAID, SELFPAY ==
[2024-08-06] VITALS (10 sets, daily range): BP systolic 144–160; BP diastolic 68–105; PULSE 84–112; RESP 18; TEMP 36.9; O2SAT 91–99; BMI 28.5
[2024-08-06 15:53] LABS: Add Manual Diff / Slide Review NO; Basophils Absolute Auto 0 /uL (0-100); Basophils Percent Auto 0.3 % (0-2); Eosinophils Absolute Auto 0 /uL (0-450); Hematocrit 40.9 % (36-46); Hemoglobin 13.9 g/dL (12.0-16.0); Lymphocytes Absolute Auto 1600 /uL (1100-4500); Lymphocytes Percent Auto 18.4 % (25-40); Mean Corpuscular Hemoglobin 32.2 PG (26-34); Mean Corpuscular Volume 94.9 fL (80-100); Monocytes Absolute Auto 500 /uL (0-900); Monocytes Percent Auto 5.7 % (3-14); Neutrophils Absolute Auto 6400 /uL (1500-7000); Neutrophils Percent Auto 75.6 % (50-75); Platelet Count 299 X10^3/uL (150-400); Red Cell Distribution Width 13.3 % (11.6-14.8); White Blood Cell Count 8.5 X10^3/uL (4.5-11.0)
[2024-08-06 16:21] LABS: Alanine Aminotransferase 44 IU/L (<35); Albumin 4.6 g/dL (3.5-5.0); Albumin Globulin Ratio 1.7 (1.0-2.8); Alkaline Phosphatase 115 U/L (38-126); Aspartate Aminotransferase 35 IU/L (14-36); BUN Creatinine Ratio 16.5 (6-22); Bilirubin Total 0.5 mg/dL (0.2-1.3); Blood Urea Nitrogen 16 mg/dL (7-17); Carbon Dioxide 24 mmol/L (22-32); Chloride 103 mmol/L (98-107); Estimated Glomerular Filt Rate > 60 mL/min (>60); Globulin 2.7 g/dL (1.7-4.1); Glucose 114 mg/dL (80-110); HEMOLYSIS < 15 (0-50); Lipase 347 U/L (23-300); Potassium 4.1 mmol/L (3.4-5.1); Sodium 138 mmol/L (137-145); Total Protein 7.3 g/dL (6.3-8.2)
--- NOTE | 2024-08-06 17:45 | EKG_ITS ---
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
[2024-08-06 18:09] LABS: Bacteria Urine None Seen; RBC Urine None Seen (0-5/HPF); Squamous Epithelial Cell Urine 0-1 /HPF (0-5/HPF); Urine Volume 10mL (spun); WBC Urine 1-5/HPF (0-5/HPF)
--- NOTE | 2024-08-06 18:49 | ED.ABDPAIN ---
HPI - Abdominal Pain General Chief Complaint: Abdominal Pain Stated Complaint: 2.5 weeks of reduced appetite, nausea Time Seen by Provider: 08/06/24 18:49 Source: patient Mode of arrival: Ambulatory History of Present Illness HPI narrative: 69-year-old female with a past medical history of hypertension, hyperlipidemia, hypothyroidism, seizures on Keppra comes into the ED from home for evaluation of multiple complaints. She states that she has been having a proximally 2-1/2 weeks of abdominal pain associated with decreased appetite nausea no vomiting abdominal distention diarrhea and this has been causing her to have worsening insomnia. She denies any other symptoms such as headache visual disturbances chest pain shortness of breath fever chills or any other GI/ symptoms time. She denies any recent travel no known sick contacts. Related Data Home Medications Medication Instructions Recorded Confirmed ascorbic acid (vitamin C) 500 mg 500 mg PO .QD 03/13/22 07/31/24 capsule famotidine 20 mg tablet See Rx Instructions PO .COMPLEX 03/13/22 07/31/24 cholecalciferol (vitamin D3) 50 50 mcg PO BID 06/06/23 07/31/24 mcg (2,000 unit) capsule stool softner 5 cap PO .QD 06/06/23 07/31/24 melatonin 1 mg chewable tablet 2 mg PO BEDTIME PRN 04/23/24 07/31/24 (Kids Melatonin) Previous Rx's Medication Instructions Recorded aspirin 81 mg tablet,delayed 81 mg PO DAILY aps #90 tabs 05/25/22 release lisinopril 10 mg tablet 10 mg PO DAILY #90 tabs 12/21/23 olanzapine 5 mg tablet 2.5 mg (1/2 x 5 mg) PO BEDTIME #45 05/26/24 tabs atorvastatin 40 mg tablet 40 mg PO BEDTIME #90 tabs 06/02/24 levothyroxine 112 mcg tablet 112 mcg PO DAILY #90 tabs 06/23/24 ezetimibe 10 mg tablet 10 mg PO BEDTIME #90 tabs 07/01/24 levetiracetam 250 mg tablet 250 mg PO BID #180 tabs 07/09/24 topiramate 100 mg tablet 100 mg PO .COMPLEX #270 tabs 07/15/24 venlafaxine 150 mg 150 mg PO BEDTIME #90 caps 07/25/24 capsule,extended release 24 hr ondansetron 4 mg disintegrating 4 mg PO Q8H PRN nausea and 08/06/24 tablet vomiting 4 days #12 tabs simethicone 125 mg chewable tablet 125 mg PO TID PRN abdominal 08/06/24 distention 5 days #15 tabs Allergies Allergy/AdvReac Type Severity Reaction Status Date / Time amoxicillin [AMOXICILLIN] Allergy Unknown Rash Verified 04/23/24 14:34 Penicillins Allergy Rash Verified 04/23/24 14:34 Sulfa (Sulfonamide Allergy Rash Verified 04/23/24 14:34 Antibiotics) adhesive tape AdvReac Unknown Redness of Verified 04/23/24 14:34 Skin Patient History Medical History Age related osteoporosis Uses hearing aid Hearing Loss Lupus Antiphospholipid antibody syndrome Mixed hyperlipidemia Sebaceous cyst Psoriasis Plantar warts Eczema Acne Depression Anxiety Seizures Mumps Measles Chicken pox Anemia Scar of middle ear History of recurrent ear infection Hearing loss Painful menstrual periods Irregular menstrual cycle Human papilloma virus History of urinary incontinence Irritable bowel syndrome GERD (gastroesophageal reflux disease) Gastric ulcer Diverticular disease Colon polyps Pituitary adenoma Hypertension Hypothyroidism Post menopausal problems H/O: depression Hyperlipidemia Temporal lobe epilepsy Surgical History Anesthesia [place] teeth removed Plantar warts History of tonsillectomy and adenoidectomy Family History Father Hypertension Stroke Cancer Brother Hypertension Stroke Diabetes mellitus Cancer History of heart disease Mental health problem Mother Dementia Grandfather Cancer Grandmother Cancer Grandfather Cancer Social History marital status: household members: spouse lives independently: Yes occupational status: previously employed Smoking Status: Never smoker alcohol intake: current substance use type: does not use Smoking Status: Never smoker alcohol intake frequency: 3 or more drinks per day Alcohol type: wine Exam Narrative Exam Narrative: General: Cooperative, well-developed, not in acute distress HEENT: Normocephalic, atraumatic, PERRLA, normal sclera, eyelids normal Neck: Active full range of motion, atraumatic Chest: Normal to inspection, negative crepitus, no overlying erythema ecchymosis Respiratory: Normal respiratory effort, not in acute respiratory distress, clear to auscultation bilaterally negative cough, wheeze, tachypnea, rhonchi, rales Cardiology: Regular rate rhythm negative gallop, murmur, rubs GI/: No tenderness to palpation, soft, non rigid, normal to inspection, exam deferred MSK: Full active range of motion in all 4 extremities, atraumatic, no tenderness to palpation of any bony prominences Skin: No rashes or lesions noted Neuro: Alert awake oriented x3, moves all 4 extremities spontaneously, cranial nerves intact, able to answer all questions appropriately follows commands appropriately Psych: Cooperative, negative suicidal or homicidal ideations Initial Vital Signs Initial Vital Signs: Vital Signs Temperature 98.4 F 08/06/24 15:25 Pulse Rate 97 H 08/06/24 15:25 Respiratory Rate 18 08/06/24 15:25 Blood Pressure 148/105 H 08/06/24 15:25 Pulse Oximetry 97 08/06/24 15:25 Oxygen Delivery Method Room Air 08/06/24 15:25 Course Orders Ordered: ED Orders 08/06/24 15:29 EKG-12 Lead Stat 08/06/24 15:40 Complete Blood Count AUTO DIFF Stat Comprehensive Metabolic Panel Stat Lipase Stat 08/06/24 17:32 Urine Culture Stat Urine Microscopic Stat 08/06/24 19:16 CT abdomen pelvis w con Stat Ondansetron HCl (Ondansetron 4 Mg/2 Ml Inj) 4 mg IV NOW PRN PRN Reason: Nausea And Vomiting Ondansetron HCl (Ondansetron 4 Mg Odt) 4 mg PO NOW PRN PRN Reason: Nausea And Vomiting Discontinued Medications Sodium Chloride (Normal Saline 0.9%) 1,000 mls @ 1,000 mls/hr IV BOLUS ONE Stop: 08/06/24 20:15 Last Admin: 08/06/24 19:37 Dose: 1,000 mls/hr Documented By: NAKUL Ondansetron HCl (Ondansetron 4 Mg/2 Ml Inj) 4 mg IV NOW ONE Stop: 08/06/24 19:17 Last Admin: 08/06/24 19:37 Dose: 4 mg Documented By: NAKUL Vital Signs Vital signs: Vital Signs - 8 hr 08/06/24 15:25 08/06/24 17:29 08/06/24 17:30 Temperature 98.4 F Pulse Rate 97 H 112 H Respiratory Rate 18 Blood Pressure 148/105 H Pulse Oximetry 97 91 96 Oxygen Delivery Method Room Air 08/06/24 17:30 08/06/24 18:00 08/06/24 18:00 Temperature Pulse Rate 90 Respiratory Rate Blood Pressure 153/80 H 145/68 H Pulse Oximetry 96 Oxygen Delivery Method 08/06/24 18:30 08/06/24 18:30 08/06/24 19:00 Temperature Pulse Rate 84 Respiratory Rate Blood Pressure 145/71 H 160/76 H Pulse Oximetry 96 Oxygen Delivery Method 08/06/24 19:00 08/06/24 19:35 08/06/24 20:00 Temperature Pulse Rate 91 H 100 H 89 Respiratory Rate Blood Pressure Pulse Oximetry 98 98 99 Oxygen Delivery Method Room Air 08/06/24 20:30 Temperature Pulse Rate 91 H Respiratory Rate Blood Pressure Pulse Oximetry 97 Oxygen Delivery Method Room Air MDM - Abdominal Pain Differential Diagnosis Differential diagnosis: Likely abdominal pain, acute appendicitis, constipation, diverticulitis, pancreatitis, small bowel obstruction and other (Urinary tract infection, electrolyte abnormality) Lab Data 08/06/24 15:40 08/06/24 15:40 Labs: Lab Results 08/06/24 08/06/24 Range/Units 15:40 17:32 WBC 8.5 (4.5-11.0) X10^3/uL RBC 4.30 (4.0-5.2) X10^6/uL Hgb 13.9 (12.0-16.0) g/dL Hct 40.9 (36-46) % MCV 94.9 (80-100) fL MCH 32.2 (26-34) PG MCHC 34.0 (30-36) % RDW 13.3 (11.6-14.8) % Plt Count 299 (150-400) X10^3/uL Neut % (Auto) 75.6 H (50-75) % Lymph % (Auto) 18.4 L (25-40) % [place] % (Auto) 5.7 (3-14) % Eos % (Auto) 0.0 L (2-4) % Baso % (Auto) 0.3 (0-2) % Neut # (Auto) 6400 (8253-8497) /uL Lymph # (Auto) 1600 (8958-3260) /uL [place] # (Auto) 500 (0-900) /uL Eos # (Auto) 0 (0-450) /uL Baso # (Auto) 0 (0-100) /uL Sodium 138 (137-145) mmol/L Potassium 4.1 (3.4-5.1) mmol/L Chloride 103 (98-107) mmol/L Carbon Dioxide 24 (22-32) mmol/L BUN 16 (7-17) mg/dL Creatinine 0.97 (0.52-1.04) mg/dL Estimated GFR > 60 (>60) mL/min BUN/Creatinine Ratio 16.5 (6-22) Glucose 114 H (80-110) mg/dL Calcium 10.0 (8.4-10.2) mg/dL Total Bilirubin 0.5 (0.2-1.3) mg/dL AST 35 (14-36) IU/L ALT 44 H (<35) IU/L Alkaline Phosphatase 115 (38-126) U/L Total Protein 7.3 (6.3-8.2) g/dL Albumin 4.6 (3.5-5.0) g/dL Globulin 2.7 (1.7-4.1) g/dL Albumin/Globulin Ratio 1.7 (1.0-2.8) Lipase 347 H (23-300) U/L Urine RBC None seen (0-5/HPF) Urine WBC 1-5/hpf (0-5/HPF) Ur Squamous Epith Cells 0-1 /hpf (0-5/HPF) Urine Bacteria None seen (None) Vol Urine Centrifuged 10ml (spun) Point of care testing: Urine Dip Bedside Urine Glucose Negative Bedside Urine Bilirubin - Negative Bedside Urine Ketone - Negative Urine Specific [place] 1.010 Bedside Urine Occult Blood - Negative Bedside Urine pH 6.0 Bedside Urine Protein - Negative Bedside Urine Urobilinogen - Negative Bedside Urine Nitrite - Negative Bedside Urine Leukocytes ++ [address] scan - abdomen/pelvis: Radiologist's Impression: [address] [address] [address] Scan Report Signed Patient: Cecilia Rice MR#: [id number] : 1955 Acct:[id number] Age/Sex: 69 / F Date of Service: 08/06/24 Loc: ED Accession Number: [id number] Procedure: CT abdomen pelvis w con Ordering Provider: Jerome Chaves D.O. PROCEDURE: CT ABDOMEN PELVIS W CON INDICATIONS: abd pain TECHNIQUE: After the administration of intravenous contrast, axial sections acquired from the lung bases to the pubic symphysis. Coronal and sagittal reformats were performed. For radiation dose reduction, the following was used: automated exposure control, adjustment of mA and/or kV according to patient size. COMPARISON: None. FINDINGS: Image quality: Diagnostic. Peritoneum: No pneumoperitoneum or ascites. Bones: No acute osseous abnormality. Lower Chest: No acute abnormality. Liver: Normal in size and contour. Gallbladder: No stones or pericholecystic fluid. Biliary tree: No intrahepatic or extrahepatic biliary ductal dilatation. Pancreas: Within normal limits. Spleen: Normal in size and contour. Kidneys: No hydronephrosis or obstructive urolithiasis. One nonobstructive inferior calyceal calculus in both kidneys, less than 2 mm in size (4/52; 4/57). Adrenals: No adrenal nodularity. Bladder: Normal in size and wall thickness. : Anteverted uterus. No abnormal adnexal masses. Stomach: Normal in size and contour. Bowel: Normal in diameter without any bowel obstruction. Appendix within normal limits (4/44). Scattered colonic diverticulosis. The cecum is located in the right upper quadrant. Mild mural thickening of the mid-lower rectum up to 11 mm (2/131) Lymph Nodes: No retroperitoneal, mesenteric, or inguinal lymphadenopathy. Vascular: No abdominal aortic aneurysm. The visualized arterial vasculature is patent. Soft Tissues: No acute abnormality. IMPRESSION: 1. Mild mural thickening of the rectum. Nonemergent gastroenterological consultation/colonoscopy recommended for evaluation. 2. Nonobstructive bilateral punctate calyceal nephrolithiasis. 3. No other acute CT abnormality of the abdomen/pelvis. ECG Data Interpretation: EKG interpreted by ED physician sinus 86 beats per minute QTC [address] changes no STEMI MDM Narrative Medical decision making narrative: 61-year-old female with a past medical history of insomnia, seizures on Keppra, hyperlipidemia, hypertension, presents to the emergency department from home for evaluation of multiple complaints. States he has been having worsening insomnia secondary to abdominal pain nausea abdominal distention no vomiting ongoing persistent for the past 2 and half weeks. Patient's lab work unremarkable, urinalysis not consistent with acute urinary tract infection, EKG nonischemic in nature, patient had CT scan of her abdomen did not show any acute findings, did note mild mural thickening of the rectum I did informed patient of this and need for Gastroenterology follow up they understand and agree with this plan. She will be sent home with symptomatic relief instructed to follow up with her primary care doctor and Gastroenterology in outpatient setting she verbalized understanding of this patient was sent home with strict return precautions verbalized these and agrees to being discharged home with outpatient follow up Discharge Plan Departure Patient Disposition: Home Clinical Impression: Abdominal distension, Decrease in appetite, Nausea Activity Restrictions/Additional Instructions: Please follow up with your primary care doctor and Gastroenterology in outpatient setting Please read the discharge instructions sheet carefully and bring all papers to all doctor follow-up visits, as it may contain information that your doctor may want to see. Disease processes change and evolve, if your symptoms worsen or if you develop any new symptoms that are concerning to you please return for evaluation. Your evaluation today does not show any evidence of any life-threatening/serious illnesses requiring admission to the hospital or surgery. Please follow-up with your doctor for re-evaluation in approximately 1 day. Seek immediate medical attention for any worrisome symptoms. *If you do not have a primary care provider please contact the [facility] Resource line at [phone]. They will ask some questions about your medical history and help get you set up with a doctor in the community. Prescriptions: New ondansetron 4 mg tablet,disintegrating 4 mg PO Q8H PRN (Reason: nausea and vomiting) 4 Days Qty: 12 0RF simethicone 125 mg tablet,chewable 125 mg PO TID PRN (Reason: abdominal distention) 5 Days Qty: 15 0RF No Action lisinopril 10 mg tablet 10 mg PO DAILY Qty: 90 2RF olanzapine 5 mg tablet 2.5 mg PO BEDTIME Qty: 45 0RF Rx Instructions: Take 1/2 tab at bedtime daily atorvastatin 40 mg tablet 40 mg PO BEDTIME Qty: 90 1RF levothyroxine 112 mcg tablet 112 mcg PO DAILY Qty: 90 1RF ezetimibe 10 mg tablet 10 mg PO BEDTIME Qty: 90 1RF levetiracetam 250 mg tablet 250 mg PO BID Qty: 180 0RF topiramate 100 mg tablet 100 mg PO .COMPLEX Qty: 270 0RF Rx Instructions: 100 mg orally; take 100mg in the morning and 200mg at bedtime venlafaxine 150 mg capsule,extended release 24hr 150 mg PO BEDTIME Qty: 90 1RF Rx Instructions: Take 1 tab (150mg) at bedtime daily. stool softner 5 cap PO .QD cholecalciferol (vitamin D3) 50 mcg (2,000 unit) capsule 50 mcg PO BID Rx Instructions: take 1 capsule twice per day famotidine 20 mg tablet See Rx Instructions PO .COMPLEX Rx Instructions: Take 20mg in the morning and 20mg in the evening ascorbic acid (vitamin C) 500 mg capsule 500 mg PO .QD Patient Comments: spring Vit D 3 2000IU melatonin [Kids Melatonin] 1 mg tablet,chewable 2 mg PO BEDTIME PRN aspirin 81 mg Tablet,Delayed Release (Dr/Ec) 81 mg PO DAILY Qty: 90 4RF Referrals: Holly Henriquez DO [Primary Care Provider] - Stand Alone Forms: Patient Portal/API/Survey
--- NOTE | 2024-08-06 19:16 | DI.CT.S_ITS ---
PROCEDURE: CT ABDOMEN PELVIS W CON INDICATIONS: abd pain TECHNIQUE: After the administration of intravenous contrast, axial sections acquired from the lung bases to the pubic symphysis. Coronal and sagittal reformats were performed. For radiation dose reduction, the following was used: automated exposure control, adjustment of mA and/or kV according to patient size. COMPARISON: None. FINDINGS: Image quality: Diagnostic. Peritoneum: No pneumoperitoneum or ascites. Bones: No acute osseous abnormality. Lower Chest: No acute abnormality. Liver: Normal in size and contour. Gallbladder: No stones or pericholecystic fluid. Biliary tree: No intrahepatic or extrahepatic biliary ductal dilatation. Pancreas: Within normal limits. Spleen: Normal in size and contour. Kidneys: No hydronephrosis or obstructive urolithiasis. One nonobstructive inferior calyceal calculus in both kidneys, less than 2 mm in size (4/52; 4/57). Adrenals: No adrenal nodularity. Bladder: Normal in size and wall thickness. : Anteverted uterus. No abnormal adnexal masses. Stomach: Normal in size and contour. Bowel: Normal in diameter without any bowel obstruction. Appendix within normal limits (4/44). Scattered colonic diverticulosis. The cecum is located in the right upper quadrant. Mild mural thickening of the mid-lower rectum up to 11 mm (2/131) Lymph Nodes: No retroperitoneal, mesenteric, or inguinal lymphadenopathy. Vascular: No abdominal aortic aneurysm. The visualized arterial vasculature is patent. Soft Tissues: No acute abnormality. IMPRESSION: 1. Mild mural thickening of the rectum. Nonemergent gastroenterological consultation/colonoscopy recommended for evaluation. 2. Nonobstructive bilateral punctate calyceal nephrolithiasis. 3. No other acute CT abnormality of the abdomen/pelvis. Dictated by: Fidencio Rodriguez M.D. on 08/06/2024 at 19:55 Approved by: Fidencio Rodriguez M.D. on 08/06/2024 at 20:00
[2024-08-06] MEDS: SODIUM CHLORIDE 0.9% 1,000 ML 1000 ML IV (19:37)
[2024-08-06] MEDS: ONDANSETRON 4 MG/2 ML INJ IV (19:37)
== END 2024-08-06 20:49 | disposition home or self-care (01) ==
PROVIDERS: Emergency Medicine; Emergency Provider Student in an Organized Health Care Education/Training Program; Family Provider Family Medicine; PCP Family Medicine
DX: R14.0 Abdominal distension (gaseous) (principal); R63.0 Anorexia; R11.0 Nausea
CPT/HCPCS: 36415; 74177; 80053; 81003; 81015; 83690; 85025; 87086; 93005; 96361; 96374; 99284; J2405; Q9967

== ENCOUNTER → 2024-08-14 10:34 | Outpatient (CLI) | payer MEDICARE, MEDICAID, SELFPAY ==
[2024-08-14 12:24] LABS: Hemoglobin A1C% w Est Avg Glu 5.2 % (4.0-6.0)
[2024-08-14 13:07] LABS: Free T3, Triiodothyronine Free 3.44 pg/mL (2.77-5.27)
[2024-08-14 13:20] LABS: TSH w/ Reflex to FT4 0.47 uIU/mL (0.47-4.68)
[2024-08-16 12:36] LABS: Levetiracetam Keppra 8.5 ug/mL (10.0-40.0)
[2024-08-16 20:36] LABS: Deamidated Gliadin Ab IgA 4 units (0-19); Deamidated Gliadin Ab IgG 1 units (0-19); Immunoglobulin A,Qn 137 mg/dL (87-352); t-Transglutaminase IgA 3 U/mL (0-3)
== END ==
PROVIDERS: Family Provider Family Medicine; PCP Family Medicine; Referring Provider Family Medicine; Visit Provider Family Medicine
DX: Z79.899 Other long term (current) drug therapy (principal); R63.0 Anorexia; R11.0 Nausea; R14.0 Abdominal distension (gaseous); E03.9 Hypothyroidism, unspecified; R73.01 Impaired fasting glucose; M32.9 Systemic lupus erythematosus, unspecified; K63.9 Disease of intestine, unspecified; G47.00 Insomnia, unspecified
CPT/HCPCS: 36415; 80177; 82784; 83036; 83516; 84443; 84481